=== PATIENT | male | born 1965 | race Caucasian/White ===

== ENCOUNTER 2018-09-12 15:19 | Inpatient (IN) | payer OTHER ==
[~2018-09-12] VITALS: Ht 182.9 cm; Wt 116.6 kg
--- NOTE | 2018-09-12 16:00 | NUR ---
PT CONTINUES TO WANDER THE DEPARTMENT, WILL NOT RETURN TO ROOM WHEN ASKED AND WHEN WE INSIST HE STAYS FOR ONLY 1-2 MINS. PT ASKED AT THIS TIME TO RETURN TO HIS ROOM FOR HIS BLOOD DRAW, HE SPOKE WITH THE INSPECTION SUPERVISOR FOR A MOMENT AND REFUSED HIS BLOOD DRAW.
--- NOTE | 2018-09-12 16:30 | NUR ---
PT CONTINUES TO WANDER THE DEAPRTMENT, HAS REFUSED A SECOND BLODD DRAW, DIRECTED HIM BACK TO HIS ROOM, WILL NOT ENTER THE ROOM, PACING IN THE HALLWAY AT THIS TIME.
--- NOTE | 2018-09-12 17:00 | NUR ---
PT WALKING DOWN THE HALLWAY, SECURITY CALLED TO SIT WITH THE PATIENT DUE TO ELOPEMENT RISK.
[2018-09-12 18:27] LABS: BASOPHILS 0.5 % (0-2); EOSINOPHILS 2.6 % (0-7); HEMATOCRIT 44.7 % (42.0-54.0); HEMOGLOBIN 15.2 g/dL (13.5-17.5); IMMATURE GRANULOCYTES 0.2 % (0-5); LYMPHOCYTES 35.8 % (15-50); MCH 27.9 pg (26.0-34.0); MEAN PLATELET VOLUME 10.5 fL (7.4-10.4); MONOCYTES 8.4 % (2-11); NEUTROPHILS 52.5 % (40-80); PLATELET COUNT 214 10x3/uL (130-400); RBC 5.45 10x6/uL (4.20-6.10); RDW 13.7 % (11.5-14.5); WBC 10.4 10x3/uL (4.8-10.8)
[2018-09-12 18:37] LABS: APPEARANCE CLEAR (CLEAR); COLOR YELLOW (YELLOW); GLUCOSE NEGATIVE (NEGATIVE); KETONE NEGATIVE (NEGATIVE); NITRITE NEGATIVE (NEGATIVE); PROTEIN NEGATIVE (NEGATIVE); SPECIFIC GRAVITY 1.025 (1.005-1.020)
[2018-09-12 18:38] LABS: BILIRUBIN NEGATIVE (NEGATIVE); UROBILINOGEN NORMAL (NORMAL)
[2018-09-12 18:43] LABS: ALBUMIN 3.9 g/dL (3.4-5.0); ALKALINE PHOSPHATASE 139 U/L (46-116); ALT (SGPT) 103 U/L (10-68); BILIRUBIN - TOTAL 0.48 mg/dL (0.2-1.3); CALC OSMOLALITY 282 mosm/kg (275-300); CALCIUM 9.2 mg/dL (8.5-10.1); CHLORIDE - SERUM 105 mmol/L (98-107); CREATININE - SERUM 0.9 mg/dL (0.6-1.3); GLUCOSE 93 mg/dL (74-106); PROTEIN - SERUM 8.1 g/dL (6.4-8.2); SODIUM 142 mmol/L (136-145); UREA NITROGEN 13 mg/dL (7-18); eGFR NON AFRICAN AMERICAN > 90 mL/min (90-120)
[2018-09-12 18:48] LABS: UDS - AMPHET NEGATIVE QUAL (NEGATIVE); UDS - BARB NEGATIVE QUAL (NEGATIVE); UDS - BENZO NEGATIVE QUAL (NEGATIVE); UDS - COCAINE NEGATIVE QUAL (NEGATIVE); UDS - OPIATE NEGATIVE QUAL (NEGATIVE); UDS - PCP NEGATIVE QUAL (NEGATIVE); UDS - THC NEGATIVE QUAL (NEGATIVE)
--- NOTE | 2018-09-12 19:00 | NUR ---
[facility] CALLED AND PSYCH [facility] DENIES PT AT THIS TIME STATES THEY DONT HAVE GERIPSYCH. ARZOLA INFORMED. [facility] STATES THEY WILL HAVE MEDICAL/ER DR TO ADMIT.
[2018-09-12 19:25] VITALS: BP 120/71
--- NOTE | 2018-09-12 19:30 | NUR ---
PT PACING IN ROOM AT THIS TIME. US AT BEDSIDE PT TALKED INTO LYING ON BED AT THIS TIME FOR EXAM. PT CALM AND COOPERATIVE AT THIS TIME.
--- NOTE | 2018-09-12 20:16 | NUR ---
PT SIGNED CONSENT FOR [facility] AT THIS TIME. INFORMED WE ARE WAITING ON [facility] TO CALL [facility] WITH ROOM ASSIGNMENT PT SITTING ON [facility] DENIES FURTHER COMPLAINTS.
--- NOTE | 2018-09-12 20:45 | NUR ---
[facility] CALLED AND SPOKE WITH ER DR. GISELLE PAYNEIES PT AT THIS TIME FOR MEDICAL ISSUES. STATES THEY HAVE NO CAPACITY AT THIS TIME.
--- NOTE | 2018-09-12 21:45 | NUR ---
PT BECOMING ANXIOUS WANTING TO ROAM HALLWAYS TALKING TO PEOPLE. PT INFORMED HE MUST STAY IN HIS ROOM. MD INFORMED SEE EMAR.
--- NOTE | 2018-09-12 22:30 | NUR ---
PT BROUGHT BY STRETCHER TO ROOM 2125 FROM ER. ACCOMPANIED BY SECURITY AND NURSES X 2. SPOKE WITH LECTURER OF PORTUGUESE, GAURAV RICHARDSON, THAT ADMIT ORDERS INCLUDE FOR PT TO HAVE 1:1 SITTER IF NEEDED. POULTRY FARM WORKER STATES FOR PT TO BE MEDICATED WITH ORDRERED GEODON BEFORE SECURITY AND EXTRA STAFF LEAVE FLOOR. PT PLACED IN ROOM THAT CAN BE VIEWED DUE TO POSSIBLE ELOPEMENT RISK. PT POOR HISTORIAN, LIMITED TRANSFER PAPERWORK SENT FROM [facility] WITH PATIENT. ATTEMPTS TO CALL [facility] RESULT IN NO ONE ANSWERING PHONE. WILL ASSESS/ADMIT AND INITIATE PLAN OF CARE.
--- NOTE | 2018-09-12 22:47 | NUR ---
GEODON GIVEN 10MG IM AT THIS TIME
--- NOTE | 2018-09-12 23:30 | NUR ---
ADMITTED FROM ER VIS STRETCHER WITH 2 NURSES AND SECURITY IN ESCORT AND TO BED PT IS EATING A SANDWICH AND IS NOT TALKING OR ANSWERING ANG QUESTIONS ORDERS FOR STEFFANY NOTED AND HS WANTS GIVEN TO KEEP PT CALM BED IS LOW AND LOCKED WITH ALARM TURNED ON SR X3 LCTA AND SKIN WARM AND DRY
--- NOTE | 2018-09-12 23:43 | NUR ---
PT IS RESTING WITH EYES CLOSED AND NO DISTRESS AT THIS TIME
--- NOTE | 2018-09-13 03:03 | NUR ---
ADMISSION ASSESSMENT COMPLETED.
[2018-09-13 03:37] VITALS: BP 122/70; BMI 28.5
[2018-09-13 04:00] VITALS: BP 148/88
[2018-09-13] MEDS ORDERED: KEPPRA500 MG PO (04:34)
[2018-09-13] MEDS ORDERED: CLARITIN 10 MG10 MG PO (04:34)
[2018-09-13] MEDS ORDERED: VITAMIN D2000 UNIT PO (04:35)
[2018-09-13] MEDS ORDERED: PHENERGAN12.5 MG RC (04:36)
--- NOTE | 2018-09-13 07:40 | NUR ---
RECEIVED REPORT. PATIENT IS ALERT AND ORIENTED TO SELF. PATIENT CONTINUES TO GET UP AND WANDER INTO THE [place] WITH NO PARTICULAR DIRECTION. HE DOES NOT SEEM TO REMEMBER WHERE HE IS SUPPOSED TO GO NEXT. HE WILL GO BACK TO HIS ROOM WITH MINIMAL DIRECTION. HE IS STABLE ON HIS FEET, HOWEVER HE DOES HAVE A SHUFFLING GAIT.
[2018-09-13 08:00] LABS: BASOPHILS 0.2 % (0-2); EOSINOPHILS 0.4 % (0-7); HEMATOCRIT 45.8 % (42.0-54.0); HEMOGLOBIN 15.6 g/dL (13.5-17.5); IMMATURE GRANULOCYTES 0.3 % (0-5); LYMPHOCYTES 22.7 % (15-50); MCH 27.8 pg (26.0-34.0); MCHC 34.1 g/dL (31.0-37.0); MCV 81.6 fL (80.0-100.0); MEAN PLATELET VOLUME 11.1 fL (7.4-10.4); MONOCYTES 8.4 % (2-11); PLATELET COUNT 190 10x3/uL (130-400); RBC 5.61 10x6/uL (4.20-6.10); RDW 13.6 % (11.5-14.5); WBC 10.8 10x3/uL (4.8-10.8)
--- NOTE | 2018-09-13 08:06 | NUR ---
PATIENT HAS JUST GONE DOWN TO CT.
[2018-09-13 08:16] LABS: ALBUMIN 3.9 g/dL (3.4-5.0); ALKALINE PHOSPHATASE 119 U/L (46-116); ALT (SGPT) 101 U/L (10-68); AMYLASE - SERUM 82 U/L (25-115); BILIRUBIN - TOTAL 0.43 mg/dL (0.2-1.3); CALC OSMOLALITY 282 mosm/kg (275-300); CALCIUM 9.3 mg/dL (8.5-10.1); CARBON DIOXIDE 23.8 mmol/L (21.0-32.0); CHLORIDE - SERUM 106 mmol/L (98-107); CREATININE - SERUM 0.9 mg/dL (0.6-1.3); GLUCOSE 93 mg/dL (74-106); LIPASE 202 U/L (73-393); POTASSIUM - SERUM 4.3 mmol/L (3.5-5.1); PROTEIN - SERUM 7.8 g/dL (6.4-8.2); SODIUM 142 mmol/L (136-145); UREA NITROGEN 12 mg/dL (7-18); eGFR NON AFRICAN AMERICAN > 90 mL/min (90-120)
--- NOTE | 2018-09-13 12:01 | NUR ---
PATIENT WAS WONDERING OFF THE FLOOR. HE IS COMPLIANT WITH ORDERS. HE HAS BEEN REACHING IN HIS SHORTS AND WIPING WITH HIS HAND. HE DOES NOT SEEM AWARE OF HYGENE. HE CAN SAY YES AND NO, BUT APPEARS TO HAVE A LIMITED VOCABULARY.
--- NOTE | 2018-09-13 14:26 | NUR ---
HOUSE SUPERVISER HAS SENT THE HYDROLOGIST UP HERE TO SIT WITH THE PATIENT AND MAKE SURE THAT HE DOES NOT WANDER AWAY AND GO INTO ANOTHER PATIENTS ROOM OR LEAVE THE HOSPITAL. WHEN THE HYDROLOGIST NEEDS TO ROUND THEN ONE OF US OR ONE OF THE TECHS WILL WATCH HIM. PATIENT DOES TRY TO GRAB AND APPROACH ME AND OTHER HOSPITAL STAFF. HE DOES NOT FORM WORDS, AND HE IS PLAYING IN HIS FECES. HE DOES NOT BACK DOWN WHEN TOLD TO DO SO.
--- NOTE | 2018-09-13 15:05 | NUR ---
PATIENT IS STILL BEING CLOSELY MONITORED BY MYSELF, THE CARGO CHECKER'S AVAILABLE AND ALSO A TOP TILE DECORATOR IS UP HERE NOW TO SIT IN A CHAIR OUTSIDE THE ROOM AND MONITOR THE PATIENT. AT THIS TIME THE PATIENT IS SITTING IN HIS CHAIR WATCHING TV. HE IS CALM AT THIS TIME.
[2018-09-13 15:18] VITALS: BP 139/78
--- NOTE | 2018-09-13 17:52 | NUR ---
SPAR MACHINE OPERATOR HELPER GRETTA RECEIVED ORDER FOR INPATIENT PSYCH CENTER. SHE HAS CALLED THE TRANSFER CENTER AT [phone] AND FAXED ALL THE REQUIRED RECORDS TO THEM. THEY WILL BEGIN TRYING TO GET PATIENT PLACED IN AN INPAITENT FACILITY AND WILL CALL US BACK ONCE ACCEPTANCE HAS BEEN OBTAINED. PRERNA CONLEY RN, [facility] [phone]
--- NOTE | 2018-09-13 18:06 | NUR ---
Patient Name: JAMESON DEE Encounter No: [id number] : 1965 Primary Insurance: [employer] Anticipated DC Date: Planned Disposition: External Planned Provider: :[Ext Provider Name] DCP follow-up note: CM called the transfer center to follow on psych placement efforts and status. Thad with the transfer center stated they have faxed [facility] no return call at this time, [place] full for the evening, [place] no reply at this time, [place] - no return call, [place] no bed tonight, [facility] - no bed for tonight, [facility], [facility] no return call, [facility] no return call, [facility] no return call, [facility] no no return call, [facility] no return call. Thad stated as soon as they have a moment they will call back to the facilities that have not called her back. She stated she is currently working on a head bleed and once she completes that she will begin calling the other facilities back. Gisela Zayas RN, CCM
[2018-09-13 18:48] VITALS: BP 144/86
--- NOTE | 2018-09-13 19:15 | NUR ---
RECEIVED REPORT, WILL ASSUME CARE OF PT, PT KEEPS TRYING TO LEAVE ROOM, PLACED BACK IN ROOM, WILL GIVE PRN MEDS, CALL LIGHT IN REACH, WILL CONTINUE PLAN OF CARE
[2018-09-13 20:00] VITALS: BP 126/72
--- NOTE | 2018-09-14 03:14 | NUR ---
I have reviewed this patient and I concur with the Shift Assessment completed by the Licensed Practical Nurse today this shift.
[2018-09-14 04:00] VITALS: BP 123/76
--- NOTE | 2018-09-14 07:20 | NUR ---
ALERT. NONVERBAL RESPONSE WHEN ASKED QUESTIONS. SITTING IN BED. SECURITY AT BEDSIDE. CONTINUE PLAN OF CARE AND SAFETY PRECAUTIONS.
[2018-09-14 07:53] LABS: BASOPHILS 0.3 % (0-2); EOSINOPHILS 1.6 % (0-7); HEMATOCRIT 45.4 % (42.0-54.0); HEMOGLOBIN 15.4 g/dL (13.5-17.5); IMMATURE GRANULOCYTES 0.3 % (0-5); MCH 27.8 pg (26.0-34.0); MCHC 33.9 g/dL (31.0-37.0); MCV 82.1 fL (80.0-100.0); MEAN PLATELET VOLUME 10.8 fL (7.4-10.4); MONOCYTES 7.2 % (2-11); NEUTROPHILS 61.6 % (40-80); RBC 5.53 10x6/uL (4.20-6.10)
[2018-09-14 07:54] LABS: PLATELET COUNT 243 10x3/uL (130-400)
[2018-09-14 08:14] LABS: ALBUMIN 3.9 g/dL (3.4-5.0); ALKALINE PHOSPHATASE 122 U/L (46-116); ALT (SGPT) 93 U/L (10-68); CALC OSMOLALITY 282 mosm/kg (275-300); CALCIUM 9.2 mg/dL (8.5-10.1); CHLORIDE - SERUM 108 mmol/L (98-107); CREATININE - SERUM 0.9 mg/dL (0.6-1.3); GLUCOSE 106 mg/dL (74-106); POTASSIUM - SERUM 3.9 mmol/L (3.5-5.1); SODIUM 142 mmol/L (136-145); UREA NITROGEN 13 mg/dL (7-18); eGFR NON AFRICAN AMERICAN > 90 mL/min (90-120)
[2018-09-14 08:36] VITALS: BP 117/82
--- NOTE | 2018-09-14 09:40 | CN ---
PATIENT NAME:JAMESON DEE MEDICAL RECORD: [id number] : 61 LOCATION:D. D.2125 ADMIT DATE: 09/12/18 ACCOUNT: [id number] CONSULTING PHYSICIAN: POLI CORTEZ MD REFERRING PHYSICIAN: EDMUND SARAVIA MD DATE OF CONSULTATION: 09/13/2018 PSYCHIATRIC CONSULTATION IDENTIFYING DATA: The patient is 52 years old and he is admitted to the hospital on a voluntary basis. CHIEF COMPLAINT: Psychotic behavior. HISTORY OF PRESENT ILLNESS: The patient lives in the [facility]. Apparently, he was smearing the [place] with excrement. He was brought to the Emergency Room for evaluation. There are no other sources of information, no collateral sources are available and no old records here. By inference since he lives in the [facility], he is obviously low income and I presume disabled. He is not able to give anything in the way of useful information. He is not oriented. He is not making sense in answering questions. In fact, his answers to questions are completely unrelated to the question being asked. He is calm and cooperative, but he clearly is severely impaired for reasons that are uncertain. He admits to having a previous psychiatric history, but cannot tell me anything about it. He denies any recent drug use and indeed his urine drug screen is negative. When trying to ask about a history of drug use, he becomes so disorganized, I cannot follow the information that he is giving me. I cannot follow it because it does not make sense. MENTAL STATUS EXAMINATION: The patient is awake, alert and oriented to person only. His mood is flat. His affect is constricted. Thought processes are grossly disorganized with severe impairment of his memory, concentration, and abstraction abilities. He denies that he wants to hurt himself or others. He is clearly experiencing psychotic symptoms even though when asked about them specifically he gave an answer that did not make any sense. ASSESSMENT: 1. 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 2. Rule out substance abuse. PLAN: At this time, the patient is grossly disorganized and behaving in a very bizarre manner. He is in need of acute inpatient psychiatric care as soon as it is reasonably practical to transfer him there. I am going to start him on antipsychotic medication. He is not suicidal, but he probably should be 1:1 with staff to prevent him from wandering away and getting injured. He certainly needs to be on a secure door-locked unit. Additional information is needed. I am strongly suspecting a history of substance abuse based on the hepatitis C finding. In addition to this, I have no knowledge about his previous mental health treatment, but we will treat him for the acute psychotic symptoms that he is experiencing. An EEG may be helpful, but I do not think that it is going to be a diagnostic. He probably has some general disorganization and I do not think that what we are currently observing his confusion is associated with a postictal or interictal syndrome. TRANSINT:[id number] Voice Confirmation ID: [id number] DOCUMENT ID: [id number] CONSULT REPORT [id number] JAMESON DEE, POLI ARZOLA at 0940 CC: [id number] DICTATION DATE: 09/13/18 1159 STUD MASTER/MISTRESS: 09/13/18 1614 ADM IN [place] [id number] [place] [address]
--- NOTE | 2018-09-14 17:24 | NUR ---
RESTING QUIETLY IN BED WITH EYES CLOSED. RESPIRATIONS EVEN AND REGULAR. NO SIGNS OF DISTRESS. CONTINUE PLAN OF CARE AND SAFETY PRECAUTIONS.
--- NOTE | 2018-09-14 20:06 | NUR ---
INITIAL ROUNDS COMPLETED AT 191 HRS. PT RESTING WITH EYES CLOSED. RESP EVEN AND REGULAR. ASSESSMENT COMPLETED AT 1920 HRS. PT CONFUSED; ORIENTED TO PERSON ONLY. UNSTEADY ON FEET. IV TO RAC SL. LUNGS CTA. ABD SOFT WITH ACTIVE BS NOTED. PT INCONTINENT OF URINE AND STOOL. BED LINENS WET. INCONTINENT CARE DONE. BED LINENS CHANGED. PT CURRENTLY WATCHING TV. SR UP X3, CALL LIGHT WITHIN REACH AND BED ALARM ON.
[2018-09-14 20:36] VITALS: BP 133/79
--- NOTE | 2018-09-14 22:59 | NUR ---
PT RESTING WITH EYES CLOSED. RESP EVEN AND REGULAR. SR UP X2, CALL LIGHT WITHIN REACH.
[2018-09-15] VITALS: BP 109/70
--- NOTE | 2018-09-15 00:42 | NUR ---
PT AWAKE AND SITTING ON SIDE OF BED. NO DISTRESS NOTED. SR UP X2, CALL LIGHT WITHIN REACH AND DOOR OPEN.
--- NOTE | 2018-09-15 01:32 | NUR ---
PT INCONTINENT OF URINE. BEDBATH DONE, BED LINENS CHANGED. PT TOLERATED ACTIVITY WELL. SR UP X2, CALL LIGHT WITHIN REACH AND DOOR OPEN.
[2018-09-15 04:00] VITALS: BP 112/68
--- NOTE | 2018-09-15 04:58 | NUR ---
PT RESTING WITH EYES CLOSED. RESP EVEN AND REGULAR. SR UP X2,CALL LIGHT WITHIN REACH, BED ALARM ON AND DOOR OPEN.
[2018-09-15 05:34] LABS: BASOPHILS 0.4 % (0-2); EOSINOPHILS 1.7 % (0-7); HEMATOCRIT 44.7 % (42.0-54.0); HEMOGLOBIN 14.9 g/dL (13.5-17.5); IMMATURE GRANULOCYTES 0.2 % (0-5); LYMPHOCYTES 33.4 % (15-50); MCH 27.7 pg (26.0-34.0); MCHC 33.3 g/dL (31.0-37.0); MCV 83.2 fL (80.0-100.0); MEAN PLATELET VOLUME 11.3 fL (7.4-10.4); MONOCYTES 8.8 % (2-11); NEUTROPHILS 55.5 % (40-80); PLATELET COUNT 238 10x3/uL (130-400); RBC 5.37 10x6/uL (4.20-6.10); RDW 14.1 % (11.5-14.5); WBC 10.3 10x3/uL (4.8-10.8)
[2018-09-15 05:52] LABS: ALBUMIN 3.5 g/dL (3.4-5.0); ALKALINE PHOSPHATASE 103 U/L (46-116); ALT (SGPT) 88 U/L (10-68); BILIRUBIN - TOTAL 0.51 mg/dL (0.2-1.3); CALC OSMOLALITY 286 mosm/kg (275-300); CARBON DIOXIDE 23.2 mmol/L (21.0-32.0); CHLORIDE - SERUM 109 mmol/L (98-107); CREATININE - SERUM 0.8 mg/dL (0.6-1.3); GLUCOSE 91 mg/dL (74-106); PROTEIN - SERUM 7.5 g/dL (6.4-8.2); SODIUM 144 mmol/L (136-145); UREA NITROGEN 12 mg/dL (7-18); eGFR NON AFRICAN AMERICAN > 90 mL/min (90-120)
--- NOTE | 2018-09-15 06:20 | NUR ---
PT RESTED WELL DURING SHIFT. INCONTINENT X3. NEEDS MET; WILL CONTINUE TO MONITOR.
[2018-09-15 08:25] VITALS: BP 113/69
--- NOTE | 2018-09-15 09:05 | MORECARE ---
CASE MANAGEMENT DISCHARGE SUMMARY PATIENT: JAMESON DEE UNIT: [id number] ADM DATE: 09/12/18 AGE: 52 : [birth year] SEX: M ROOM/BED: D.2615 AUTHOR: LATOSHA BHAKTA PHYSICIAN: REFERRING PHYSICIAN: EDMUND SARAVIA MD DATE OF SERVICE: 09/15/18 Discharge Plan Patient Name: JAMESON DEE Facility: [facility]:[place] : 1965 Planned Disposition: Psych facility Anticipated Discharge Date: 09/15/18 Discharge Date: Expected LOS: 3 Initial Reviewer: [id number] Initial Review Date: 09/12/2018 Generated: 09/15/18 10:05 am Comments DCP- Discharge Planning Updated by [id number]: Gisela Zayas on 09/13/18 5:[address] Patient Name: JAMESON DEE Encounter No: [id number] : 1965 Primary Insurance: [employer] [facility] Anticipated DC Date: Planned Disposition: External Planned Provider: :[Ext Provider Name] DCP follow-up note: CM called the transfer center to follow on psych placement efforts and status. Thad with the transfer center stated they have faxed [facility] no return call at this time, [place] full for the evening, [place] no reply at this time, [place] - no return call, [place] no bed tonight, [facility] - no bed for tonight, [facility], [facility] no return call, [facility] no return call, [facility] no return call, [facility] no no return call, [facility] no return call. Thad stated as soon as they have a moment they will call back to the facilities that have not called her back. She stated she is currently working on a head bleed and once she completes that she will begin calling the other facilities back. Gisela Zayas RN, [facility] DCP- Discharge Planning Updated by [id number]: Gisela Zayas on 09/13/18 4:[address] Patient Name: JAMESON DEE Encounter No: [id number] : 1965 Primary Insurance: [employer] Anticipated DC Date: Planned Disposition: External Planned Provider: : DCP follow-up note: [facility] and [facility] told them to admit the patient here as they did not have geripsych. Gisela Zayas DCP- Discharge Planning Updated by [id number]: Gisela Marquez on 09/13/18 4:[address] Patient Name: JAMESON DEE Admission Status: ER Accout number: [id number] Admission Date: 09-12-2018 : 1965 Admission Diagnosis: Attending: EDMUND SARAVIA Current LOS: 1 Anticipated DC Date: Planned Disposition: Primary Insurance: [facility] Discharge Planning Comments: CM CONSULT FOR [facility] NOTIFIED AND PACKET SENT. Reel Winder: Berna Baptiste Patient Name: JAMESON DEE Page [id number] at 0905 All edits/amendments must be made on the electronic document DICTATION DATE: 09/15/18903 MATERIAL ENGINEER: ANA MARIA 09/15/18903 RPT#: [id number] DC DATE: STATUS: ADM IN [place] [address] [place] [address] END OF REPORT
[2018-09-15 11:28] VITALS: BP 99/60
--- NOTE | 2018-09-15 12:43 | MORECARE ---
CASE MANAGEMENT DISCHARGE SUMMARY PATIENT: JAMESON DEE UNIT: [id number] ADM DATE: 09/12/18 AGE: 52 : [birth year] SEX: M ROOM/BED: D.2125 AUTHOR: YONY,DOC PHYSICIAN: REFERRING PHYSICIAN: EDMUND SARAVIA MD DATE OF SERVICE: 09/15/18 Discharge Plan Patient Name: JAMESON DEE Facility: [facility]:[place] : 1965 Planned Disposition: Psych facility Anticipated Discharge Date: 09/15/18 Discharge Date: Expected LOS: 3 Initial Reviewer: [email or web address] Initial Review Date: 09/12/2018 Generated: 09/15/18 1:42 pm Comments DCP- Discharge Planning Updated by [email or web address]: Nathan Boswell on 09/15/18 11:[address] Patient Name: JAMESON DEE Encounter No: [id number] : 1965 Primary Insurance: [employer] [facility] Anticipated DC Date: 09-15-2018 Planned Disposition: Psych facility External Planned Provider: [facility] DCP follow-up note: CM CALLED [place] EXPEDITOR, , SPOKE TO DAVID; INFORMED EXPEDITOR THAT PT IS MEDICALLY STABLE AND IN NEED OF INPATIENT PSYCHIATRIC PLACEMENT. DAVID REVIEWED RECORD AND OBSERVED THAT PT WAS ORIGINALLY REQUESTED FOR PSYCHIATRIC TRANSFER DUR TO [facility]. CM INFORMED EXPEDITOR THAT PT HAS BEEN DIAGNOSED WITH PSYCHOSIS. CM PROVIDED [facility] 2 CONTACT INFORMATION WELL CM CONTACT INFORMATION AND CONTACT PHONE NUER FOR DR. SEYMOUR. CM WAITING [facility] TO CONTACT DOCTOR OR CM TO CONTINUE TRANSFER PROCESS. Nathan Boswell, CASE MANAGEMENT DCP- Discharge Planning Updated by [id number]: Gisela Zayas on 09/13/18 5:[address] Patient Name: JAMESON DEE Encounter No: [id number] : 1965 Primary Insurance: [employer] Anticipated DC Date: Planned Disposition: External Planned Provider: :[Ext Provider Name] DCP follow-up note: CM called the transfer center to follow on psych placement efforts and status. Thad with the transfer center stated they have faxed [facility] no return call at this time, [place] full for the evening, [place] no reply at this time, [place] - no return call, [place] no bed tonight, Episcopalian - no bed for tonight, [facility] no return call, [facility] no return call, [facility] no return call, [facility] no return call, [facility] no no return call, [facility] no return call. Thad stated as soon as they have a moment they will call back to the facilities that have not called her back. She stated she is currently working on a head bleed and once she completes that she will begin calling the other facilities back. Gisela Zayas RN, [facility] DCP- Discharge Planning Updated by [id number]: Gisela Zayas on 09/13/18 4:[address] Patient Name: JAMESON DEE Encounter No: [id number] : 1965 Primary Insurance: [employer] Anticipated DC Date: Planned Disposition: External Planned Provider: : DCP follow-up note: [facility] and they told them to admit the patient here as they did not have geripsych. Gisela Zayas DCP- Discharge Planning Updated by [id number]: Gisela Zayas on 09/13/18 4:[address] Patient Name: JAMESON DEE Admission Status: ER Accout number: [id number] Admission Date: 09-12-2018 : 1965 Admission Diagnosis: Attending: EDMUND SARAVIA Current LOS: 1 Anticipated DC Date: Planned Disposition: Primary Insurance: [employer] Discharge Planning Comments: CM CONSULT FOR [facility] TRANSF[facility] CENTER NOTIFIED AND PACKET SENT. Barrel Plater: Berna John DP export: 09/15/18 8:05 a Patient Name: JAMESON DEE Page [id number] at 1243 All edits/amendments must be made on the electronic document DICTATION DATE: 09/15/18 1242 AUDITOR/QUALITY: ANA MARIA 09/15/18 124 RPT#: [id number] DC DATE: STATUS: ADM IN [facility] [address] [place] [address] END OF REPORT
[2018-09-15 14:01] VITALS: Ht 182.9 cm; Wt 116.6 kg
[2018-09-15 15:27] VITALS: BP 124/77
--- NOTE | 2018-09-15 16:00 | NUR ---
RESTING IN BED WITH EYES CLOSED. RESPIRATIONS EVEN AND REGULAR. NO SIGNS OF DISTRESS. THREE SIDERAILS UP. BED ALARM ON. CONTINUE PLAN OF CARE AND SAFETY PRECAUTIONS.
--- NOTE | 2018-09-15 16:47 | MORECARE ---
CASE MANAGEMENT DISCHARGE SUMMARY PATIENT: JAMESON DEE UNIT: [id number] ADM DATE: 09/12/18 AGE: 52 : [birth year] SEX: M ROOM/BED: D.2125 AUTHOR: YONY,DOC PHYSICIAN: REFERRING PHYSICIAN: EDMUND SARAVIA MD DATE OF SERVICE: 09/15/18 Discharge Plan Patient Name: JAMESON DEE Facility: [facility]:[place] : 1965 Planned Disposition: Psych facility Anticipated Discharge Date: 09/16/18 Discharge Date: Expected LOS: 4 Initial Reviewer: [id number] Initial Review Date: 09/12/2018 Generated: 09/15/18 5:47 pm Comments DCP- Discharge Planning Updated by [id number]: Nathan Helms on 09/15/18 3:[address] Patient Name: JAMESON DEE Encounter No: [id number] : 1965 Primary Insurance: [employer] Anticipated DC Date: 09-15-2018 Planned Disposition: Psych facility External Planned Provider: [facility] IN[facility] DCP follow-up note: CM CALLED IN EXPEDITOR, , SPOKE TO DAVID; INFORMED EXPEDITOR THAT PT IS MEDICALLY STABLE AND IN NEED OF INPATIENT PSYCHIATRIC PLACEMENT. DAVID REVIEWED RECORD AND OBSERVED THAT PT WAS ORIGINALLY REQUESTED FOR PSYCHIATRIC TRANSFER DUR TO [facility]. CM INFORMED EXPEDITOR THAT PT HAS BEEN DIAGNOSED WITH PSYCHOSIS. CM PROVIDED [facility] 2 CONTACT INFORMATION WELL CM CONTACT INFORMATION AND CONTACT PHONE [facility] FOR DR. SEYMOUR. CM WAITING [facility] TO CONTACT DOCTOR OR CM TO CONTINUE TRANSFER PROCESS. Nathan Helms, CASE MANAGEMENT Appended by Nathan Helms on 09/15/2018 16:41 CDT: CM CALLED IN EXPEDITOR, , SPOKE TO DAVID AT 1515 HOURS, REQUESTED UPDATE ON PLACEMENT REQUEST FOR INPATIENT PHYCHIATRIC CARE. PATIENT EXPEDITOR DAVID INFORMED CM THAT SCREENING NURSE, AVANI SHRESTHA, HAD GONE HOME FOR THE DAY AND SHOULD CONTACT CM IN THE MORNING. CM NOTIFIED CARRIE SNIDER. CM WAITING ON SCREENING AND ADMISSION DETERMINATION FROM IN [facility] [place]. NATHAN HELMS, CASE MANAGEMENT DCP- Discharge Planning Updated by [id number]: Gisela Zayas on 09/13/18 5:[address] Patient Name: JAMESON DEE Encounter No: [id number] : 1965 Primary Insurance: [employer] Anticipated DC Date: Planned Disposition: External Planned Provider: :[Ext Provider Name] DCP follow-up note: CM called the transfer center to follow on psych placement efforts and status. Thad with the transfer center stated they have faxed [facility] no return call at this time, [place] full for the evening, [place] no reply at this time, [place] - no return call, [place] no bed tonight, [facility] - no bed for tonight, [facility] no [facility], [facility] no return call, [facility] no return call, [facility] no return call, [facility] no no return call, [facility] no return call. Thad stated as soon as they have a moment they will call back to the facilities that have not called her back. She stated she is currently working on a head bleed and once she completes that she will begin calling the other facilities back. Gisela Zayas RN, [facility] DCP- Discharge Planning Updated by [id number]: Gisela Zayas on 09/13/18 4:[address] Patient Name: JAMESON DEE Encounter No: [id number] : 1965 Primary Insurance: [employer] Anticipated DC Date: Planned Disposition: External Planned Provider: : DCP follow-up note: [facility] Nurse and they told them to admit the patient here as they did not have geripsych. Gisela Zayas DCP- Discharge Planning Updated by [id number]: Gisela Zayas on 09/13/18 4:[address] Patient Name: JAMESON DEE Admission Status: ER Accout number: [id number] Admission Date: 09-12-2018 : 1965 Admission Diagnosis: Attending: EDMUND SARAVIA Current LOS: 1 Anticipated DC Date: Planned Disposition: Primary Insurance: [employer] Discharge Planning Comments: CM CONSULT FOR PSYCH PLACEMENT TRANSFER CENTER NOTIFIED AND PACKET SENT. Oil Well Pumper: Berna Baptiste Last DP export: 09/15/18 11:42 a Patient Name: JAMESON DEE Page [id number] at 1647 All edits/amendments must be made on the electronic document DICTATION DATE: 09/15/181646 FIELD INVESTIGATOR: ANA MARIA 09/15/181646 RPT#: [id number] DC DATE: STATUS: ADM IN [facility] [address] [place] [address] END OF REPORT
--- NOTE | 2018-09-15 18:31 | NUR ---
FLITCH HANGER ASSIST TO SHOWER. SHOWER AND LINEN CHANGE COMPLETE. STANDING AT SINK BRUSHING HAIR. FLITCH HANGER AT BEDSIDE TO ASSIST TO CHAIR FOR DINNER. DENIES ANY NEEDS. CONTINUE PLAN OF CARE AND SAFETY PRECAUTIONS.
--- NOTE | 2018-09-15 19:30 | NUR ---
RESUMING PATIENT CARE. PATIENT ALERT AND ORIENTED X 1. RESPIRATIONS ARE EVEN AND UNLABORED. NO S/S OF DISTRESS. NO C/O PAIN. DENIES NEEDS. CALL LIGHT WITHIN REACH. WILL CPOC.
[2018-09-15 20:00] VITALS: BP 113/73
--- NOTE | 2018-09-16 01:13 | NUR ---
PATIENT RESTING IN BED. RESPIRATIONS ARE EVEN AND UNLABORED. NO S/S OF DISTRESS. NO C/O PAIN. CALL LIGHT WITHIN REACH. WILL CPOC.
[2018-09-16 08:22] LABS: BASOPHILS 0.3 % (0-2); EOSINOPHILS 1.9 % (0-7); HEMOGLOBIN 15.4 g/dL (13.5-17.5); IMMATURE GRANULOCYTES 0.1 % (0-5); LYMPHOCYTES 33.9 % (15-50); MCH 27.9 pg (26.0-34.0); MCHC 33.5 g/dL (31.0-37.0); MCV 83.3 fL (80.0-100.0); MEAN PLATELET VOLUME 10.9 fL (7.4-10.4); MONOCYTES 9.6 % (2-11); NEUTROPHILS 54.2 % (40-80); PLATELET COUNT 262 10x3/uL (130-400); RBC 5.52 10x6/uL (4.20-6.10); RDW 14.2 % (11.5-14.5); WBC 8.9 10x3/uL (4.8-10.8)
[2018-09-16 08:41] LABS: ALBUMIN 3.6 g/dL (3.4-5.0); BILIRUBIN - TOTAL 0.53 mg/dL (0.2-1.3); CALCIUM 9.2 mg/dL (8.5-10.1); CARBON DIOXIDE 28.5 mmol/L (21.0-32.0); POTASSIUM - SERUM 3.5 mmol/L (3.5-5.1)
[2018-09-16 08:42] LABS: CREATININE - SERUM 1.1 mg/dL (0.6-1.3)
[2018-09-16 09:56] VITALS: BP 126/67
--- NOTE | 2018-09-16 10:06 | MORECARE ---
CASE MANAGEMENT DISCHARGE SUMMARY PATIENT: JAMESON DEE UNIT: [id number] ADM DATE: 09/12/18 AGE: 52 : 61 SEX: M ROOM/BED: D.2125 AUTHOR: YONY,DOC PHYSICIAN: REFERRING PHYSICIAN: EDMUND SARAVIA MD DATE OF SERVICE: 09/16/18 Discharge Plan Patient Name: JAMESON DEE Facility: [facility]:[place] : 1965 Planned Disposition: Psych facility Anticipated Discharge Date: 09/16/18 Discharge Date: Expected LOS: 4 Initial Reviewer: [id number] Initial Review Date: 09/12/2018 Generated: 09/16/18 11:06 am Comments DCP- Discharge Planning Updated by [email or web address]: Nathan Helms on 09/15/18 3:[address] Patient Name: JAMESON DEE Encounter No: [id number] : 1965 Primary Insurance: [employer] ADMINISTRATION Anticipated DC Date: 09-15-2018 Planned Disposition: Psych facility External Planned Provider: [facility]AC[facility] DCP follow-up note: CM CALLED [place] EXPEDITOR, , SPOKE TO DAVID; INFORMED EXPEDITOR THAT PT IS MEDICALLY STABLE AND IN NEED OF INPATIENT PSYCHIATRIC PLACEMENT. DAVID REVIEWED RECORD AND OBSERVED THAT PT WAS ORIGINALLY REQUESTED FOR PSYCHIATRIC TRANSFER DUR TO [facility]. CM INFORMED EXPEDITOR THAT PT HAS BEEN DIAGNOSED WITH PSYCHOSIS. CM PROVIDED [facility] 2 CONTACT INFORMATION WELL CM CONTACT INFORMATION AND CONTACT PHONE [facility] FOR DR. SEYMOUR. CM WAITING [facility] PSY[facility]RIC UNIT TO CONTACT DOCTOR OR CM TO CONTINUE TRANSFER PROCESS. Nathan Helms, CASE MANAGEMENT Appended by Nathan Helms on 09/15/2018 16:41 CDT: CM CALLED [place] EX[facility], , SPOKE TO DAVID AT 1515 HOURS, REQUESTED UPDATE ON PLACEMENT REQUEST FOR INPATIENT PHYCHIATRIC CARE. PATIENT EXPEDITOR DAVID INFORMED CM THAT SCREENING NURSE, AVANI SHRESTHA, HAD GONE HOME FOR THE DAY AND SHOULD CONTACT CM IN THE MORNING. CM NOTIFIED CARRIE SNIDER. CM WAITING ON SCREENING AND ADMISSION DETERMINATION FROM [facility] IN [place]. NATHAN HELMS, CASE MANAGEMENT DCP- Discharge Planning Updated by [id number]: Gisela Zayas on 09/13/18 5:[address] Patient Name: JAMESON DEE Encounter No: [id number] : 1965 Primary Insurance: [employer] Anticipated DC Date: Planned Disposition: External Planned Provider: :[Ext Provider Name] DCP follow-up note: CM called the transfer center to follow on psych placement efforts and status. Thad with the transfer center stated they have faxed [facility] no return call at this time, [place] full for the evening, [place] no reply at this time, [place] - no return call, [place] no bed tonight, [facility] - no bed for tonight, [facility], [facility] no return call, [place] no return call, [facility] no return call, [facility] no no return call, [facility] no return call. Thad stated as soon as they have a moment they will call back to the facilities that have not called her back. She stated she is currently working on a head bleed and once she completes that she will begin calling the other facilities back. Gisela Zayas RN, [facility] DCP- Discharge Planning Updated by [id number]: Gisela Zayas on 09/13/18 4:[address] Patient Name: JAMESON DEE Encounter No: [id number] : 1965 Primary Insurance: [employer] Anticipated DC Date: Planned Disposition: External Planned Provider: : DCP follow-up note: [facility] told [facility] to admit the patient here as they did not have geripsych. Gisela Zayas DCP- Discharge Planning Updated by [id number]: Gisela Zayas on 09/13/18 4:[address] Patient Name: JAMESON DEE Admission Status: ER Accout number: [id number] Admission Date: 09-12-2018 : 1965 Admission Diagnosis: Attending: EDMUND SARAVIA Current LOS: 1 Anticipated DC Date: Planned Disposition: Primary Insurance: [employer] Discharge Planning Comments: CM CONSULT FOR PSYCH PLACEMENT TRANSFER CENTER NOTIFIED AND PACKET SENT. Mortgage Processing Manager: Berna Baptiste External Providers External Provider: OTHER-OTHER Next Contact Date: 09/16/2018 Service Request Date: Service Type: Resolution: Reviewer: Comments: Last DP export: 09/15/18 3:47 p Patient Name: JAMESON DEE Page 94142 at 1006 All edits/amendments must be made on the electronic document DICTATION DATE: 09/16/181005 CONTROLLER MECHANIC: ANA MARIA 09/16/181005 RPT#: [id number] DC DATE: STATUS: ADM IN [facility] [address] [place] [address] END OF REPORT
--- NOTE | 2018-09-16 11:22 | MORECARE ---
CASE MANAGEMENT DISCHARGE SUMMARY PATIENT: JAMESON DEE UNIT: [id number] ADM DATE: 09/12/18 AGE: 52 : 61 SEX: M ROOM/BED: D.9435 AUTHOR: YONY,DOC PHYSICIAN: REFERRING PHYSICIAN: EDMUND SARAVIA MD DATE OF SERVICE: 09/16/18 Discharge Plan Patient Name: JAMESON DEE Facility: [facility]:[place] : 1965 Planned Disposition: Assisted Living Anticipated Discharge Date: 09/16/18 Discharge Date: Expected LOS: 4 Initial Reviewer: [id number] Initial Review Date: 09/12/2018 Generated: 09/16/18 12:21 pm Comments DCP- Discharge Planning Updated by [id number]: Nathan Helms on 09/15/18 3:[address] Patient Name: JAMESON DEE Encounter No: [id number] : 1965 Primary Insurance: [employer] ADMINISTRATION Anticipated DC Date: 09-15-2018 Planned Disposition: Psych facility External Planned Provider: [facility]IC FAC[facility] DCP follow-up note: CM CALLED [place] EXPEDITOR, , SPOKE TO DAVID; INFORMED EXPEDITOR THAT PT IS MEDICALLY STABLE AND IN NEED OF INPATIENT PSYCHIATRIC PLACEMENT. DAVID REVIEWED RECORD AND OBSERVED THAT PT WAS ORIGINALLY REQUESTED FOR PSYCHIATRIC TRANSFER DUR TO [facility]. CM INFORMED EXPEDITOR THAT PT HAS BEEN DIAGNOSED WITH PSYCHOSIS. CM PROVIDED [facility] 2 CONTACT INFORMATION WELL CM CONTACT INFORMATION AND CONTACT PHONE [facility] FOR DR. SEYMOUR. CM WAITING [facility] PSYCHIATRIC UNIT TO CONTACT DOCTOR OR CM TO CONTINUE TRANSFER PROCESS. Nathan Helms, CASE MANAGEMENT Appended by Nathan Helms on 09/15/2018 16:41 CDT: CM CALLED [place] EXPEDITOR, , SPOKE TO DAVID AT 1515 HOURS, REQUESTED UPDATE ON PLACEMENT REQUEST FOR INPATIENT PHYCHIATRIC CARE. PATIENT EXPEDITOR DAVID INFORMED CM THAT SCREENING NURSE, AVANI SHRESTHA, HAD GONE HOME FOR THE DAY AND SHOULD CONTACT CM IN THE MORNING. CM NOTIFIED CARRIE SNIDER. CM WAITING ON SCREENING AND ADMISSION DETERMINATION FROM [facility] IN [place]. NATHAN HELMS, CASE MANAGEMENT DCP- Discharge Planning Updated by [id number]: Gisela Zayas on 09/13/18 5:[address] Patient Name: JAMESON DEE Encounter No: [id number] : 1965 Primary Insurance: [employer] Anticipated DC Date: Planned Disposition: External Planned Provider: :[Ext Provider Name] DCP follow-up note: CM called the transfer center to follow on psych placement efforts and status. Thad with the transfer center stated they have faxed [facility] no return call at this time, [place] full for the evening, [place] no reply at this time, [place] - no return call, [place] no bed tonight, Yazidism - no bed for tonight, [facility], [facility] no return call, [facility] no return call, [facility] no return call, [facility] no no return call, [facility] no return call. Thad stated as soon as they have a moment they will call back to the facilities that have not called her back. She stated she is currently working on a head bleed and once she completes that she will begin calling the other facilities back. Gisela Zayas RN, [facility] DCP- Discharge Planning Updated by [id number]: Gisela Zayas on 09/13/18 4:[address] Patient Name: JAMESON DEE Encounter No: [id number] : 1965 Primary Insurance: [employer] Anticipated DC Date: Planned Disposition: External Planned Provider: : DCP follow-up note: [facility] and [facility] told them to admit the patient here as they did not have geripsych. Gisela Zayas DCP- Discharge Planning Updated by [id number]: Gisela Zayas on 09/13/18 4:[address] Patient Name: JAMESON DEE Admission Status: ER Accout number: [id number] Admission Date: 09-12-2018 : 1965 Admission Diagnosis: Attending: EDMUND SARAVIA Current LOS: 1 Anticipated DC Date: Planned Disposition: Primary Insurance: [employer] Discharge Planning Comments: CM CONSULT FOR PSYCH PLACEMENT TRANSFER CENTER NOTIFIED AND PACKET SENT. Dietetics Teacher: Berna Baptiste Last DP export: 09/16/18 9:06 a Patient Name: JAMESON DEE Page 57568 at 1122 All edits/amendments must be made on the electronic document DICTATION DATE: 09/16/18 112 PRIVATE CHEF: ANA MARIA 09/16/18 112 RPT#: [id number] DC DATE: STATUS: ADM IN [facility] [address] [place] [address] END OF REPORT
--- NOTE | 2018-09-16 11:31 | MORECARE ---
CASE MANAGEMENT DISCHARGE SUMMARY PATIENT: JAMESON DEE UNIT: [id number] ADM DATE: 09/12/18 AGE: 52 : 61 SEX: M ROOM/BED: D.1105 AUTHOR: YONY,DOC PHYSICIAN: REFERRING PHYSICIAN: EDMUND SARAVIA MD DATE OF SERVICE: 09/16/18 Discharge Plan Patient Name: JAMESON DEE Facility: [facility]:[place] : 1965 Planned Disposition: Assisted Living Anticipated Discharge Date: 09/16/18 Discharge Date: Expected LOS: 4 Initial Reviewer: [id number] Initial Review Date: 09/12/2018 Generated: 09/16/18 12:31 pm Comments DCP- Discharge Planning Updated by [id number]: Nathan Helms on 09/16/18 10:[address] Patient Name: JAMESON DEE Encounter No: [id number] : 1965 Primary Insurance: [employer] Anticipated DC Date: 09-16-2018 Planned Disposition: Assisted Living External Planned Provider: [facility] DCP follow-up note: CM RECEIVED CALL FROM AVANI SHRESTHA OF [facility] WHO INFORMED CM THAT PT IS NOT IN NEED OF ACUTE PSYCHIATRIC TREATMENT HIS PRIMARY DIAGNOSIS IS DEMENTIA. AVANI INFORMED CM THAT PT NEEDS HALFWAY FACILITY CARE THAT CAN DEAL WITH PT'S BEHAVIORS. ENRIQUE INFORMED CM THAT PT LIVES AT THE [facility] AND SHE BELIEVES HE IS IN MEMORY CARE UNIT. CM CALLED THE [facility], [phone], SPOKE TO LIONEL WHO INFORMED CM THAT SHE CALLED THE [facility] ON SATURDAY AND THEY SAID THEY WERE GOING TO TAKE PT INTO THE PSYCHIATRIC UNIT AND TO SEND PT TO THE EMERGENCY ROOM FOR TRANSFER. CM EXPLAINED WHAT AVANI SHRESTHA HAD INDICATED FROM [facility]. CM ASKED IF THE [facility] WILL SEND SOMEONE TO EVALUATE FOR RETURN. LIONEL WILL SPEAK TO [facility] AND IF PT DOES NOT TRANSFER, THEY WILL PROBABLY TAKE PT BACK INTO MEMORY CARE AT [facility]. CM WAITING DETERMINATION FOR READMIT TO THE [facility]ARE UNIT. Nathan Helms CASE MANAGEMENT DCP- Discharge Planning Updated by [id number]: Nathan Helms on 09/15/18 3:[address] Patient Name: JAMESON DEE Encounter No: [id number] : 1965 Primary Insurance: [employer]MINISTRATION Anticipated DC Date: 09-15-2018 Planned Disposition: Psych facility External Planned Provider: [facility] INPATIENT [facility]AC[facility] DCP follow-up note: CM CALLED [place] EXP[facility]OR, , SPOKE TO DAVID; INFORMED EXPEDITOR THAT PT IS MEDICALLY STABLE AND IN NEED OF INPATIENT PSYCHIATRIC PLACEMENT. DAVID REVIEWED RECORD AND OBSERVED THAT PT WAS ORIGINALLY REQUESTED FOR PSYCHIATRIC TRANSFER DUR TO [facility]. CM INFORMED EXPEDITOR THAT PT HAS BEEN DIAGNOSED WITH PSYCHOSIS. CM PROVIDED [facility] 2 CONTACT INFORMATION WELL CM CONTACT INFORMATION AND CONTACT PHONE [facility] FOR DR. SEYMOUR. CM WAITING [facility] PSYCHIATRIC UNIT TO CONTACT DOCTOR OR CM TO CONTINUE TRANSFER PROCESS. Nathan Helms, CASE MANAGEMENT Appended by Nathan Helms on 09/15/2018 16:41 CDT: CM CALLED [place] EXP[facility]OR, , SPOKE TO DAVID AT 1515 HOURS, REQUESTED UPDATE ON PLACEMENT REQUEST FOR INPATIENT PHYCHIATRIC CARE. PATIENT EXPEDITOR DAVID INFORMED CM THAT SCREENING NURSE, AVANI SHRESTHA, HAD GONE HOME FOR THE DAY AND SHOULD CONTACT CM IN THE MORNING. CM NOTIFIED CARRIE SNIDER. CM WAITING ON SCREENING AND ADMISSION DETERMINATION FROM [facility] [place]. NATHAN HELMS, CASE MANAGEMENT DCP- Discharge Planning Updated by [id number]: Gisela Zayas on 09/13/18 5:[address] Patient Name: JAMESON DEE Encounter No: [id number] : 1965 Primary Insurance: [employer] Anticipated DC Date: Planned Disposition: External Planned Provider: :[Ext Provider Name] DCP follow-up note: CM called the transfer center to follow on psych placement efforts and status. Thad with the transfer center stated they have faxed [facility] no return call at this time, [place] full for the evening, [place] no reply at this time, [place] - no return call, [place] no bed tonight, [facility] - no bed for tonight, [facility] no return call, [facility] no return call, [facility] no return call, [facility] no return call, [facility] no no return call, [facility] no return call. Thad stated as soon as they have a moment they will call back to the facilities that have not called her back. She stated she is currently working on a head bleed and once she completes that she will begin calling the other facilities back. Gisela Zayas RN, [facility] DCP- Discharge Planning Updated by [id number]: Gisela Zayas on 09/13/18 4:[address] Patient Name: JAMESON DEE Encounter No: [id number] : 1965 Primary Insurance: [employer] Anticipated DC Date: Planned Disposition: External Planned Provider: : DCP follow-up note: [facility] and [facility] told them to admit the patient here as they did not have geripsych. Gisela Zayas DCP- Discharge Planning Updated by [id number]: Gisela Zayas on 09/13/18 4:[address] Patient Name: JAMESON DEE Admission Status: ER Accout number: [id number] Admission Date: 09-12-2018 : 1965 Admission Diagnosis: Attending: EDMUND SARAVIA Current LOS: 1 Anticipated DC Date: Planned Disposition: Primary Insurance: [employer] Discharge Planning Comments: CM CONSULT FOR [facility] TRANSFER CENTER NOTIFIED AND PACKET SENT. Insurance Commissioner: Berna John DP export: 09/16/18 10:21 a Patient Name: JAMESON DEE Page 60077 at 1131 All edits/amendments must be made on the electronic document DICTATION DATE: 09/16/18 113 OCULARIST: ANA MARIA 09/16/18 1130 RPT#: [id number] DC DATE: STATUS: ADM IN [facility] [address] [place] [address] END OF REPORT
--- NOTE | 2018-09-16 14:00 | NUR ---
UP OUT OF BED IN [place]. ENCOURAGE TO RETURN TO ROOM. ASSIST WITH REDIRECTING BACK TO ROOM. SITTER OUTSIDE ROOM. ATIVAN ADMINISTERED ORDERED PRN. ASSIST BACK TO BED. CONTINUE SAFETY PRECAUTIONS AND PLAN OF CARE.
--- NOTE | 2018-09-16 15:08 | MORECARE ---
CASE MANAGEMENT DISCHARGE SUMMARY PATIENT: JAMESON DEE UNIT: [id number] ADM DATE: 09/12/18 AGE: 52 : 61 SEX: M ROOM/BED: D.3985 AUTHOR: YONY,DOC PHYSICIAN: REFERRING PHYSICIAN: EDMUND SRAAVIA MD DATE OF SERVICE: 09/16/18 Discharge Plan Patient Name: JAMESON DEE Facility: [facility]:[place] : 1965 Planned Disposition: Assisted Living Anticipated Discharge Date: 09/16/18 Discharge Date: Expected LOS: 4 Initial Reviewer: [id number] Initial Review Date: 09/12/2018 Generated: 09/16/18 4:08 pm Comments DCP- Discharge Planning Updated by [id number]: Bret Helms on 09/16/18 2:[address] Patient Name: JAMESON DEE Encounter No: [id number] : 1965 Primary Insurance: [employer] Anticipated DC Date: 09-16-2018 Planned Disposition: Assisted Living External Planned Provider: [facility] DCP follow-up note: CM RECEIVED CALL FROM AVANI SHRESTHA OF [facility] WHO INFORMED CM THAT PT IS NOT IN NEED OF ACUTE PSYCHIATRIC TREATMENT HIS PRIMARY DIAGNOSIS IS DEMENTIA. AVANI INFORMED CM THAT PT NEEDS HALFWAY FACILITY CARE THAT CAN DEAL WITH PT'S BEHAVIORS. ENRIQUE INFORMED CM THAT PT LIVES AT THE [facility] AND SHE BELIEVES HE IS IN MEMORY CARE UNIT. CM CALLED THE [facility], [phone], SPOKE TO LIONEL WHO INFORMED CM THAT SHE CALLED [facility]URDAY AND THEY SAID THEY WERE GOING TO TAKE PT INTO THE PSYCHIATRIC UNIT AND TO SEND PT TO THE EMERGENCY ROOM FOR TRANSFER. CM EXPLAINED WHAT AVANI SHRESTHA HAD INDICATED FROM [facility]. CM ASKED IF THE [facility] WILL SEND SOMEONE TO EVALUATE FOR RETURN. LIONEL WILL SPEAK TO [facility] AND IF PT DOES NOT TRANSFER, THEY WILL PROBABLY TAKE PT BACK INTO MEMORY CARE AT [facility]. CM WAITING DETERMINATION FOR READMIT TO THE [facility] MEMORY CARE UNIT. Bret Helms, CASE MANAGEMENT Appended by Bret Helms on 09/16/2018 15:01 CDT: DISCHARGE PLANNING NOTES: CM RECEIVED CALL FROM THE [facility], [phone], SPOKE TO LIONEL WHO INFORMED CM THAT SHE HAS NOT YET TALKED TO AVANI SHRESTHA AT [facility] YET. LIONEL WILL SPEAK TO [facility]. AVANI STATED THAT HER NURSE PRACTITIONER WANTS CM TO ATTEMPT TO SECURE INPATIENT PSYCHIATRIC CARE IN OTHER FACILITY. CM EXPLAINED THAT THE [facility] IS [facility] AND THE [facility] HAS INFORMED CM THAT THEY DO NOT FEEL PT NEEDS ACUTE INPATIENT PSYCHIATRIC CARE AND IF THE [facility] WILL NOT PAY FOR THE STAY IN INPATIENT PSYCHIATRIC UNIT, PT WOULD HAVE TO BE ACCEPTED SELF PAY. [facility] REPORTS PT ALSO HAS QUAL CHOICE INSURANCE. CM EXPLAINED THAT PT'S PAYOR SOURCE FOR HOSPTIAL STAY IS [facility] AND CM DID NOT THINK THAT OTHER INSURANCE WOULD PAY FOR INPATIENT PSYCHIATRIC CARE FROM THIS HOSPITAL STAY WITH ANOTHER PAYOR PRIMARY. CM CALLED [facility] CALL TRANSFER CENTER, , SPOKE TO NEELAM WHO INFORMED CM THAT THE TRANSFER CENTER HAS CONTINUED TO SEEK INPATIENT PSYCHIATRIC PLACEMENT AND PT HAS BEEN DENIED BY 19 FACILITIES. THE ONLY THREE THAT HAVE NOT DECLINED PT ARE [facility] (HAS NO BEDS AVAILABLE), [facility] (HAS NO BEDS AVAILABLE) AND [facility] (PACKET FAXED TO THE FACILITY WITH NO DETERMINATION OF YET). CM CALLED [facility] AT THE [facility], NOTIFIED OF DENIALS AND ONE OUTSTANDING REFERRAL TO INPATIENT PSYCHIATRIC FACILITY IN [place]. CM WAITING DETERMINATION FOR READMIT TO THE [facility] MEMORY CARE UNIT. PT HAS BEEN DECLINED AT 19 INPATIENT PSYCHIATRIC CARE FACLITIES WELL THE [facility]. THERE IS ONLY ONE PENDING REFERRAL AT [facility] IN [place] FOR INPATIENT PSYCHIATRIC CARE. Bret Helms, CASE MANAGEMENT DCP- Discharge Planning Updated by [id number]: Bret Helms on 09/15/18 3:[address] Patient Name: JAMESON DEE Encounter No: [id number] : 1965 Primary Insurance: [facility] [employer] Anticipated DC Date: 09-15-2018 Planned Disposition: Psych facility External Planned Provider: [facility]AC[facility] DCP follow-up note: CM CALLED [facility] EXP[facility], , SPOKE TO DAVID; INFORMED EXPEDITOR THAT PT IS MEDICALLY STABLE AND IN NEED OF INPATIENT PSYCHIATRIC PLACEMENT. DAVID REVIEWED RECORD AND OBSERVED THAT PT WAS ORIGINALLY REQUESTED FOR PSYCHIATRIC TRANSFER DUR TO [facility]. CM INFORMED EXPEDITOR THAT PT HAS BEEN DIAGNOSED WITH PSYCHOSIS. CM PROVIDED [facility] CONTACT INFORMATION WELL CM CONTACT INFORMATION AND CONTACT PHONE [facility] FOR DR. SEYMOUR. CM WAITING [facility] PSYCHIATRIC UNIT TO CONTACT DOCTOR OR CM TO CONTINUE TRANSFER PROCESS. Bret Helms, CASE MANAGEMENT Appended by Bret Helms on 09/15/2018 16:41 CDT: CM CALLED [facility] EXP[facility], , SPOKE TO DAVID AT 1515 HOURS, REQUESTED UPDATE ON PLACEMENT REQUEST FOR INPATIENT PHYCHIATRIC CARE. PATIENT EXPEDITOR DAVID INFORMED CM THAT SCREENING NURSE, AVANI SHRESTHA, HAD GONE HOME FOR THE DAY AND SHOULD CONTACT CM IN THE MORNING. CM NOTIFIED CARRIE SINDER. CM WAITING ON SCREENING AND ADMISSION DETERMINATION FROM [facility] [place]. BRET HELMS, CASE MANAGEMENT DCP- Discharge Planning Updated by [id number]: Gisela Zayas on 09/13/18 5:[address] Patient Name: JAMESON DEE Encounter No: [id number] : 1965 Primary Insurance: [employer] [facility] Anticipated DC Date: Planned Disposition: External Planned Provider: :[Ext Provider Name] DCP follow-up note: CM called the transfer center to follow on psych placement efforts and status. Thad with the transfer center stated they have faxed [facility] no return call at this time, [place] full for the evening, [place] no reply at this time, [place] - no return call, [place] no bed tonight, [place] - no bed for tonight, [facility] no [facility], [facility] no return call, [facility] no return call, [facility] no return call, [facility] no no return call, [facility] no return call. Thad stated as soon as they have a moment they will call back to the facilities that have not called her back. She stated she is currently working on a head bleed and once she completes that she will begin calling the other facilities back. Gisela Zayas RN, [facility] DCP- Discharge Planning Updated by [id number]: Gisela Zayas on 09/13/18 4:[address] Patient Name: JAMESON DEE Encounter No: [id number] : 1965 Primary Insurance: [employer] Anticipated DC Date: Planned Disposition: External Planned Provider: : DCP follow-up note: [facility] and they told them to admit the patient here as they did not have geripsych. Gisela Zayas DCP- Discharge Planning Updated by [id number]: Gisela Zayas on 09/13/18 4:[address] Patient Name: JAMESON DEE Admission Status: ER Accout number: [id number] Admission Date: 09-12-2018 : 1965 Admission Diagnosis: Attending: EDMUND SARAVIA Current LOS: 1 Anticipated DC Date: Planned Disposition: Primary Insurance: [facility] Discharge Planning Comments: CM CONSULT FOR PSYCH PLACEMENT TRANSFER CENTER NOTIFIED AND PACKET SENT. Hi Lo Driver: Berna John DP export: 09/16/18 10:31 a Patient Name: JAMESON DEE Page 52130 at 1508 All edits/amendments must be made on the electronic document DICTATION DATE: 09/16/181507 TITLE OFFICER: ANA MARIA 09/16/18 1508 RPT#: [id number] DC DATE: STATUS: ADM IN [facility] [address] [place] [address] END OF REPORT
[2018-09-16 15:32] VITALS: BP 119/65
--- NOTE | 2018-09-16 17:23 | MORECARE ---
CASE MANAGEMENT DISCHARGE SUMMARY PATIENT: JAMESON DEE UNIT: [id number] ADM DATE: 09/12/18 AGE: 52 : 61 SEX: M ROOM/BED: D.8585 AUTHOR: YONY,DOC PHYSICIAN: REFERRING PHYSICIAN: EDMUND SARAVIA MD DATE OF SERVICE: 09/16/18 Discharge Plan Patient Name: JAMESON DEE Facility: [facility]:[place] : 1965 Planned Disposition: Assisted Living Anticipated Discharge Date: 09/17/18 Discharge Date: Expected LOS: 5 Initial Reviewer: [id number] Initial Review Date: 09/12/2018 Generated: 09/16/18 6:23 pm Comments DCP- Discharge Planning Updated by [id number]: Bret Helms on 09/16/18 4:[address] Patient Name: JAMESON DEE Encounter No: [id number] : 1965 Primary Insurance: [employer] Anticipated DC Date: 09-16-2018 Planned Disposition: Assisted Living External Planned Provider: [facility] DCP follow-up note: CM RECEIVED CALL FROM AVANI SHRESTHA OF [facility] WHO INFORMED CM THAT PT IS NOT IN NEED OF ACUTE PSYCHIATRIC TREATMENT HIS PRIMARY DIAGNOSIS IS DEMENTIA. AVANI INFORMED CM THAT PT NEEDS LONGTERM FACILITY CARE THAT CAN DEAL WITH PT'S BEHAVIORS. ENRIQUE INFORMED CM THAT PT LIVES AT THE [facility] AND SHE BELIEVES HE IS IN MEMORY CARE UNIT. CM CALLED THE [facility], [phone], SPOKE TO LIONEL WHO INFORMED CM THAT SHE CALLED THE [place] ON SATURDAY AND THEY SAID THEY WERE GOING TO TAKE PT INTO THE PSYCHIATRIC UNIT AND TO SEND PT TO THE EMERGENCY ROOM FOR TRANSFER. CM EXPLAINED WHAT AVANI SHRESTHA HAD INDICATED FROM [facility]. CM ASKED IF THE [facility] WILL SEND SOMEONE TO EVALUATE FOR RETURN. LIONEL WILL SPEAK TO [place] AND IF PT DOES NOT TRANSFER, THEY WILL PROBABLY TAKE PT BACK INTO MEMORY CARE AT [facility]. CM WAITING DETERMINATION FOR READMIT TO THE [facility] CARE UNIT. Bret Helms, CASE MANAGEMENT Appended by Bret Helms on 09/16/2018 15:01 CDT: DISCHARGE PLANNING NOTES: CM RECEIVED CALL FROM THE [facility], [phone], SPOKE TO LIONEL WHO INFORMED CM THAT SHE HAS NOT YET TALKED TO AVANI SHRESTHA AT [place] YET. LIONEL WILL SPEAK TO [facility]. AVANI STATED THAT HER NURSE PRACTITIONER WANTS CM TO ATTEMPT TO SECURE INPATIENT PSYCHIATRIC CARE IN OTHER FACILITY. CM EXPLAINED THAT [facility] AND THE [facility] HAS INFORMED CM THAT THEY DO NOT FEEL PT NEEDS ACUTE INPATIENT PSYCHIATRIC CARE AND IF THE [facility] WILL NOT [facility] THE STAY IN INPATIENT PSYCHIATRIC UNIT, PT WOULD HAVE TO BE ACCEPTED SELF PAY. ALLEN REPORTS PT ALSO HAS QUAL CHOICE INSURANCE. CM EXPLAINED THAT PT'S PAYOR SOURCE FOR HOSPTIAL STAY IS [place] AND CM DID NOT THINK THAT OTHER INSURANCE WOULD PAY FOR INPATIENT PSYCHIATRIC CARE FROM THIS HOSPITAL STAY WITH ANOTHER PAYOR PRIMARY. CM CALLED [facility], , SPOKE TO NEELAM WHO INFORMED CM THAT THE TRANSFER CENTER HAS CONTINUED TO SEEK INPATIENT PSYCHIATRIC PLACEMENT AND PT HAS BEEN DENIED BY 19 FACILITIES. THE ONLY THREE THAT HAVE NOT DECLINED PT ARE [facility] (HAS NO BEDS AVAILABLE), [facility] (HAS NO BEDS AVAILABLE) AND [facility] (PACKET FAXED TO THE FACILITY WITH NO DETERMINATION OF YET). CM CALLED ALLEN AT THE [facility], NOTIFIED OF DENIALS AND ONE OUTSTANDING REFERRAL TO INPATIENT PSYCHIATRIC FACILITY IN [place]. CM WAITING DETERMINATION FOR READMIT TO THE [facility] MEMORY CARE UNIT. PT HAS BEEN DECLINED AT 19 INPATIENT PSYCHIATRIC CARE FACLITIES [place] [place] [facility]. THERE IS ONLY ONE PENDING REFERRAL AT [facility] IN [place] FOR INPATIENT PSYCHIATRIC CARE. Bret Helms, CASE MANAGEMENT Appended by Bret Helms on 09/16/2018 17:18 CDT: CM RECEIVED CALL FROM LIONEL AND SITA ACOSTA OF THE [facility]. SITA IS LINE HAUL DRIVER FOR THE FACILITY AND WILL COME TO EVALUATE PT FOR RETURN TO THE [facility] IN THE MORNING. LIONEL REPORTS SHE DID NOT RECEIVE ANY RETURN CALL FROM AVANI SHRESTHA AT THE [place]. CM RECEIVED CALL FROM CAROL ANN USMAN, PT'S DAUGHTER, , WHO REPORTS TO BE PT'S POWER OF STIFF LEG OPERATOR. SHE IS IN AGREEMENT WITH PT'S RETURN TO THE [facility]. CAROL ANN REPORTS THAT BEFORE PT IS PRESCRIBED ANY MEDICATION, CAROL ANN SHOULD BE NOTIFIED AT [phone]. CAROL ANN REPORTS PT IS A DNR/DNI. CM WAITING DETERMINATION FOR READMIT TO THE [facility]. PT HAS BEEN DECLINED AT 19 INPATIENT PSYCHIATRIC CARE FACLITIES [place] [facility] [facility]. THERE IS ONLY ONE PENDING REFERRAL AT [facility] IN [place] FOR INPATIENT PSYCHIATRIC CARE. Bret Helms, CASE MANAGEMENT DCP- Discharge Planning Updated by [id number]: Bret Helms on 09/15/18 3:[address] Patient Name: JAMESON DEE Encounter No: [id number] : 1965 Primary Insurance: [employer] Anticipated DC Date: 09-15-2018 Planned Disposition: Psych facility External Planned Provider: [facility] DCP follow-up note: CM CALLED [place] EXP[facility], , SPOKE TO DAVID; INFORMED EXPEDITOR THAT PT IS MEDICALLY STABLE AND IN NEED OF INPATIENT PSYCHIATRIC PLACEMENT. DAVID REVIEWED RECORD AND OBSERVED THAT PT WAS ORIGINALLY REQUESTED FOR PSYCHIATRIC TRANSFER DUR TO [facility]. CM INFORMED EXPEDITOR THAT PT HAS BEEN DIAGNOSED WITH PSYCHOSIS. CM PROVIDED [employer] 2 CONTACT INFORMATION WELL CM CONTACT INFORMATION AND CONTACT PHONE [facility]. CM WAITING [facility] PSYCHIATRIC UNIT TO CONTACT DOCTOR OR CM TO CONTINUE TRANSFER PROCESS. Bret Helms, CASE MANAGEMENT Appended by Bret Helms on 09/15/2018 16:41 CDT: CM CALLED [facility], , SPOKE TO DAVID AT 1515 HOURS, REQUESTED UPDATE ON PLACEMENT REQUEST FOR INPATIENT PHYCHIATRIC CARE. PATIENT EXPEDITOR DAVID INFORMED CM THAT SCREENING NURSE, AVANI SHRESTHA, HAD GONE HOME FOR THE DAY AND SHOULD CONTACT CM IN THE MORNING. CM NOTIFIED CARRIE SNIDER. CM WAITING ON SCREENING AND ADMISSION DETERMINATION FROM [facility] [place]. BRET HELMS, CASE MANAGEMENT DCP- Discharge Planning Updated by [id number]: Gisela Zayas on 09/13/18 5:[address] Patient Name: JAMESON DEE Encounter No: [id number] : 1965 Primary Insurance: [facility] [employer] Anticipated DC Date: Planned Disposition: External Planned Provider: :[Ext Provider Name] DCP follow-up note: CM called the transfer center to follow on psych placement efforts and status. Thad with the transfer center stated they have faxed [facility] no return call at this time, [facility] full for the evening, [facility] no reply at this time, [facility] - no return call, [facility] no bed tonight, [facility] - no bed for tonight, [facility] return call, [facility] no return call, [facility] no return call, [facility] no return call, [facility] no no return call, [facility] no return call. Thad stated as soon as they have a moment they will call back to the facilities that have not called her back. She stated she is currently working on a head bleed and once she completes that she will begin calling the other facilities back. Gisela Zayas RN, [facility] DCP- Discharge Planning Updated by [id number]: Gisela Zayas on 09/13/18 4:[address] Patient Name: JAMESON DEE Encounter No: [id number] : 1965 Primary Insurance: [employer] Anticipated DC Date: Planned Disposition: External Planned Provider: : DCP follow-up note: [facility] told [facility] to [facility] the patient here as they did not have geripsych. Gisela Zayas DCP- Discharge Planning Updated by [id number]: Gisela Zayas on 09/13/18 4:[address] Patient Name: JAMESON DEE Admission Status: ER Accout number: [id number] Admission Date: 09-12-2018 : 1965 Admission Diagnosis: Attending: EDMUND SARAVIA Current LOS: 1 Anticipated DC Date: Planned Disposition: Primary Insurance: [employer] Discharge Planning Comments: CM CONSULT FOR [facility] TRANSFER CENTER NOTIFIED AND PACKET SENT. Appraiser Land: Berna John DP export: 09/16/18 2:08 p Patient Name: JAMESON DEE Page [phone] at 1723 All edits/amendments must be made on the electronic document DICTATION DATE: 09/16/181721 FOOD AND NUTRITION TEACHER: ANA MARIA 09/16/181721 RPT#: [id number] DC DATE: STATUS: ADM IN [facility] [address] [place] [address] END OF REPORT
--- NOTE | 2018-09-16 18:17 | NUR ---
RESTING IN BED WITH EYES CLOSED. RESPIRATIONS EVEN AND REGULAR. NO SIGNS OF DISTRESS. SPOKE WITH DAUGHTER ON PHONE. DAUGHTER CAROL ANN YOUSSEF STATES, "MY DAD IS A DNR AND I WANT TO BE NOTIFIED BEFORE MEDICATIONS ADMINISTERED." INFORM CAROL ANN MESSAGE WILL BE PASSED IN REPORT. CONTINUE PLAN OF CARE AND SAFETY PRECAUTIONS.
--- NOTE | 2018-09-16 19:05 | NUR ---
PT ASLEEP, NO S/S OF DISTRESS. PT RESP EVEN AND UNLABORED. NAME AND DATE PLACED ON BOARD. BEDLOW AND CALL LIGHT IN REACH. ALARM ON AND ACTIVE. WILL CPOC
--- NOTE | 2018-09-16 19:33 | NUR ---
PT ALARM WENT OFF. PT NOW SITTING ON SIDE OF BED, WARMED UP DINNER TRAY AND PT IS EATING. PT DENIES ANY NEEDS. NO S/S OF DISTRESS. ALARM ON AND ACTIVE. WILL CPOC
[2018-09-16 20:00] VITALS: BP 129/83
--- NOTE | 2018-09-16 21:29 | NUR ---
NIGHT MEDICATIONS GIVEN. PT COMPLIANT. ALERT TO NAME AND ONLY. PT S1S2 RRR, FINE CRACKLES IN DIMINISHED LOWER LOBES. PT LAID DOWN AFTER MEDICATIONS. WATCHING TV. FOLLOWING COMMANDS AT THIS TIME. NO S/S OF DISTRESS. CALL LIGHT IN REACH. ALARM ON AND ACTIVE. WILL CPOC
--- NOTE | 2018-09-16 22:22 | NUR ---
PT SITTING ON SIDE OF BED. SET UP ONCE TO WALK AROUND. ALERTED NURSE WITH ALARM. PT ALERT TO NAME AND ONLY. REORIENTED PT TO ROOM AND PLAN OF CARE. PT VERBALIZED UNDERSTANDING. ASSISTED PT WITH STRAIGHTING BED. PT DENIES ANY OTHER NEEDS. NO S/S OF DISTRESS. ALARM ON AND ACTIVE. WILL CPOC
[2018-09-17] VITALS: BP 128/70
--- NOTE | 2018-09-17 00:48 | NUR ---
PT ASLEEP AT THIS TIME. LAYING ON RIGHT SIDE. NO S/S OF DISTRESS. BEDLOW AND CALL LIGHT IN REACH. ALARM ON AND ACTIVE. WILL CPOC
[2018-09-17 04:00] VITALS: BP 138/87
--- NOTE | 2018-09-17 04:11 | NUR ---
PT SET ON SIDE OF BED. ALERT TO NAME AND ONLY. NURSE ALERTED BY ALARM. PT ASKED WITH GARBLED SPEECH WHAT TIME IT IS. OFFERED FOOD,WATER AND RESTROOM THEN ASSISTED PT BACK TO BED. ALARM ON AND ACTIVE. NO S/S OF DISTRESS. WILL CPOC
--- NOTE | 2018-09-17 06:06 | NUR ---
PT GETTING UP, FOLLOWS COMMANDS AND SITS BACK DOWN. NURSE GOT PT AN ENSURE. PT SITTING ON SIDE OF BED DRINKING ENSURE. PO ATIVAN GIVEN FOR RESTLESSNESS AND AGITATION. PT ALARM ON AND ACTIVE. WILL CPOC
[2018-09-17 06:13] LABS: BASOPHILS 0.1 % (0-2); EOSINOPHILS 2.2 % (0-7); HEMATOCRIT 44.2 % (42.0-54.0); HEMOGLOBIN 14.7 g/dL (13.5-17.5); IMMATURE GRANULOCYTES 0.2 % (0-5); LYMPHOCYTES 37.2 % (15-50); MCH 27.9 pg (26.0-34.0); MCHC 33.3 g/dL (31.0-37.0); NEUTROPHILS 49.3 % (40-80); PLATELET COUNT 222 10x3/uL (130-400); RBC 5.26 10x6/uL (4.20-6.10); RDW 14.2 % (11.5-14.5); WBC 8.1 10x3/uL (4.8-10.8)
--- NOTE | 2018-09-17 06:14 | NUR ---
PT ASSISTED WITH LAYING DOWN WITH HOB ELEVATED. PT ALARM ON AND ACTIVE. WILL CPOC
[2018-09-17 06:38] LABS: ALBUMIN 3.4 g/dL (3.4-5.0); ANION GAP 10.7 mmol/L (8-16); BILIRUBIN - TOTAL 0.52 mg/dL (0.2-1.3); CALCIUM 9.3 mg/dL (8.5-10.1); CARBON DIOXIDE 30.9 mmol/L (21.0-32.0); CREATININE - SERUM 1.1 mg/dL (0.6-1.3); POTASSIUM - SERUM 3.6 mmol/L (3.5-5.1); PROTEIN - SERUM 7.6 g/dL (6.4-8.2)
--- NOTE | 2018-09-17 07:27 | NUR ---
PT RESTING IN BED EYES CLOSED. RESPIRATIONS EVEN AND REGULAR. NO SIGN OF DISTRESS. BED ALARM ON. BED AT LOWEST POSITION. CALL LIGHT WITHIN REACH. WILL CONTINUE TO MONITOR.
[2018-09-17 08:33] VITALS: BP 138/78
--- NOTE | 2018-09-17 11:54 | NUR ---
PT RESTING COMFORTABLY IN BED, AROUSES TO STIMULI. ASKED PT IF HE WANTED TO EAT SOME LUNCH. PT OPENED HIS EYES AND STATED " MAYBE LATER" AND CLOSED HIS EYES AGAIN. NAD NOTED, CALL LIGHT IN REACH, BEDSIDE RAILS X2, BED LOW, WILL CONITNUE TO MONITOR.
--- NOTE | 2018-09-17 14:49 | NUR ---
PT RESTING IN BED EYES CLOSED. RESPIRATIONS EVEN AND REGULAR. DENIES NEEDS AT THIS TIME. ABLE TO FOLLOW AND RESPOND TO VERBAL COMMANDS. BEDRAILS UP X2. CALL LIGHT WITHIN REACH. WILL CONTINUE TO MONITOR.
--- NOTE | 2018-09-17 15:18 | NUR ---
CLEANED PT UP FROM INCONT EPISODE, PT MORE ALERT NOW, WILL GET HIM A LUNCH TRAY. PT DENIES ANY OTHER NEEDS AT THIS TIME. CALL LIGHT IN REACH, FERNANDO ALARM ON, NAD NOTED, WILL CONITNUE PLAN OF CARE.
--- NOTE | 2018-09-17 15:39 | MORECARE ---
CASE MANAGEMENT DISCHARGE SUMMARY PATIENT: JAMESON DEE UNIT: [id number] ADM DATE: 09/12/18 AGE: 52 : 61 SEX: M ROOM/BED: D.5845 AUTHOR: YONY,DOC PHYSICIAN: REFERRING PHYSICIAN: EDMUND SARAVIA MD DATE OF SERVICE: 09/17/18 Discharge Plan Patient Name: JAMESON DEE Facility: [facility]:[place] : 1965 Planned Disposition: Assisted Living Anticipated Discharge Date: 09/17/18 Discharge Date: Expected LOS: 5 Initial Reviewer: [id number] Initial Review Date: 09/12/2018 Generated: 09/17/18 4:38 pm Comments DCP- Discharge Planning Updated by [id number]: Eunice Palmer on 09/17/18 2:[address] @0707 I RECEIVED A STICKY NOTE THIS AM FROM THE BEDSIDE NURSE, IMELDA, THAT REQUESTED I CALL DARIA ACOSTA @ [phone] SOON I COULD IN REGARDS TO THIS PATIENT (I WAS TOLD LAST NIGHT THAT THIS INDIVIDUAL WOULD BE HERE THIS AM TO EVALUATE THIS PATIENT TO DETERMINE IF THE [facility] COULD TAKE HIM BACK). I PLACED A CALL AND LEFT A VOICE MAIL THAT I RECEIVED THE STICKY NOTE AND GAVE HIM MY RETURN NUMBER. I RECEIVED A RETURN CALL FROM HIM A SHORT TIME LATER AND WE DISCUSSED HIM COMING BACK. HE WANTED THE NUMBER TO [facility] SHRESTHA AT [facility]. I WAS UNABLE TO FIND THIS NUMBER, BUT @ 4614 LET DARIA KNOW THAT PER [facility]'S DOCUMENTATION THE NUMBER WAS GIVEN TO LIONEL YESTERDAY. I HEARD NOTHING BACK FROM HIM. @0909, I RECEIVED A CALL FROM LEILA AT THE [facility]. SHE STATED THAT [facility] AND NOW [facility] TRYING TO REFER HIM TO [facility] FOR MEDICATION ADJUSTMENTS AND THEY WILL LET HER KNOW IN ABOUT AN HOUR IF THEY WILL ACCEPT HIM OR NOT AND SHE WILL LET ME KNOW, AND IF NOT THEY WOULD TAKE HIM BACK AND SHE WOULD CONTINUE TO WORK ON GETTING HIM INTO [facility]. SHE STATED THAT SHE HAS A FRIEND THAT WORKS THERE WHO SHE WOULD BE WORKING WITH. I REMINDED HER THAT 19 INPATIENT UNITS HAD REFUSED HIM AND THERE WERE ONLY 3 LEFT THAT WERE CONSIDERING HIM. SHE STATED SHE KNEW AND SHE WOULD LET ME KNOW SOON SHE KNEW. AFTER I HUNG UP THE PHONE WITH HER, THE [facility] NURSE IMELDA STATED THAT [facility] WOULD ACCEPT THE PATIENT, BUT HE WOULD HAVE TO BE SENT TO THEIR ER AND EVALUATED FIRST. THE PATIENT DOES NOT HAVE A PLACE TO GO AT DISCHARGE CURRENTLY AND IF WE SENT HIM ALL THE WAY THERE AND THEY DECIDED THAT HE DID NOT HAVE AN INPATIENT NEED, WHERE WOULD HE GO? NEAR 1300, I HAD NOT HAD ANY RETURN CALL, SO I CALLED AND LEFT A MESSAGE FOR THEM TO PLEASE CALL ME BACK. SHORTLY AFTER 1400 ANOTHER MESSAGE WAS LEFT. @1443 RECEIVED A RETURN CALL FROM DARIA ACOSTA, AND REVIEWED THE AM CONVERSATON WITH LEILA. HE STATED THAT THEY HAVE NOT HEARD BACK FROM THE [facility] AND THEY WERE WAITING. HE ALSO STATED THAT THEY NEEDED SCRIPTS, NOT FROM DR SARAVIA BUT FROM DR KHAN FOR ALL NEW MEDICATOINS THE PATIENT WAS PUT ON. I CLARIFIED IF THEY WOULD TAKE THIS PATIENT BACK TODAY OR IF THEY WERE PLANNING TO LEAVE HIM HERE UNTIL PLACEMENT WAS FOUND. WITHOUT DIRECTLY STATING IT, HE EMPLYED THAT THEY WERE NOT TAKING THE PATIENT BACK. SOON I HUNG UP WITH DRAIA, THERE WAS A CALL WAITING FOR ME. IT WAS HEYDI MAHARAJ WITH THE [facility]. I GAVE HER AN UPDATE ON THE EVENTS OF THE DAY WITH LEILA AND DARIA. EXPLAINED THAT THE DOCTOR IS WANTING TO KNOW WHAT IS GOING ON WITH THIS PATIENT AND THEY WERE WANTING HIM OUT OF HERE TODAY. SHE STATED THAT THEY WOULD BE ABLE TO TAKE HIM BACK BUT THEY WOULD HAVE TO HAVE AN OUTPATIENT FOLLOW UP APPOINTMENT WITH THE [facility] (WHICH I EXPLAINED WE MAY BE ABLE TO DO, BUT SOMETIMES THEY WILL). SHE ALSO STATED THAT THEY WOULD HAVE TO HAVE A SCRIPT FOR ALL HIS NEW MEDICATIONS TO LAST UNTIL THE APPOINTMENT. I EXPLAINED THAT DR SEYMOUR WOULD BE ABLE TO DO THAT. SHE SAID THAT IS WHAT THEY WOULD NEED IN ORDER TO TAKE HIM BACK. I REQUESTED A DIRECT NUMBER TO GET WITH HER AND SHE GAVE ME HER CALL NUMBER OF [phone]. UPON CALLING THE [facility], THE PATIENT ALREADY HAD AN APPOINTMENT SCHEDULED FOR September @ 0930. I CALLED CAROL ANN AND LET HER KNOW THIS. SHE STATED SHE WOULD HAVE TO CALL ME RIGHT BACK. UPON HER RETURN CALL, SHE STATED THAT THIS APPOINTMENT WOULD BE FINE. SHE STATED THAT THEY DID NOT HAVE TRANSPORT FOR TODAY, AND COULD ARRANGE TRANSPORT FOR IN THE AM. TRANSPORT IS SET UP FOR AT 0800 TOMORROW 09/18. SHE HAS REQUESTED THAT WE HAVE THE SCRIPTS FOR ALL MEDICATOINS AND FAX HER THE DISCHARGE STUFF TONIGHT TO [phone] SO THAT THEY CAN BE WORKING ON GETTING THINGS READY. I HAVE RELAYED THIS INFORMATION TO DYLAN OLIVO CM SECONDARY TO IT IS ALMOST THE END OF MY DAY, AND SHE WILL FOLLOW THROUGH WITH THIS. I SENT MARGO SNIDER APN A MESSAGE AND RECIEVED AN ALMOST INSTANT RETURN CALL. ALL THE ABOVE HAS BEEN EXPLAINED IN SHORTER FORMAT. SHE WILL PUT THE DISCHARGE IN AND IS TRYING TO SEE IF DR SEYMOUR IS HERE TO WHERE HE COULD SIGN SCRIPTS SO THAT EVERYTING WILL BE READY TO GO IN THE AM. I AM WAITING FOR A RETURN CALL FROM HER AND WILL RELAY ANY LOOSE STRINGS TO [facility]. DCP- Discharge Planning Updated by [id number]: Bret Helms on 09/16/18 4:[address] Patient Name: JAMESON DEE Encounter No: [id number] : 1965 Primary Insurance: [employer]MINIST[employer]ATION Anticipated DC Date: 09-16-2018 Planned Disposition: Assisted Living External [facility] follow-up note: CM RECEIVED CALL FROM VAANI SHRESTHA OF [facility] WHO INFORMED CM THAT PT IS NOT IN NEED OF ACUTE PSYCHIATRIC TREATMENT HIS PRIMARY DIAGNOSIS IS DEMENTIA. AVANI INFORMED CM THAT PT NEEDS USP FACILITY CARE THAT CAN DEAL WITH PT'S BEHAVIORS. ENRIQUE INFORMED CM THAT PT LIVES AT THE [facility] AND SHE BELIEVES HE IS IN MEMORY CARE UNIT. CM CALLED THE [facility], [phone], SPOKE TO LIONEL WHO INFORMED CM THAT SHE CALLED [facility] ON SATURDAY AND THEY SAID THEY WERE GOING TO TAKE PT INTO THE PSYCHIATRIC UNIT AND TO SEND PT TO THE EMERGENCY ROOM FOR TRANSFER. CM EXPLAINED WHAT AVANI SHRESTHA HAD INDICATED FROM [facility]. CM ASKED IF THE [facility] WILL SEND SOMEONE TO EVALUATE FOR RETURN. LIONEL WILL SPEAK TO [facility] AND IF PT DOES NOT TRANSFER, THEY WILL PROBABLY TAKE PT BACK INTO MEMORY CARE AT [facility]. CM WAITING DETERMINATION FOR READMIT TO THE [facility] UN[facility]. Bret Helms, CASE MANAGEMENT Appended by Bret Helms on 09/16/2018 15:01 CDT: DISCHARGE PLANNING NOTES: CM RECEIVED CALL FROM THE [facility], [phone], SPOKE TO LIONEL WHO INFORMED CM THAT SHE HAS NOT YET TALKED TO AVANI SHRESTHA AT [facility] YET. LIONEL WILL SPEAK TO [facility]. AVANI STATED THAT HER NURSE PRACTITIONER WANTS CM TO ATTEMPT TO SECURE INPATIENT PSYCHIATRIC CARE IN OTHER FACILITY. CM EXPLAINED THAT THE [facility] IS [facility]S [facility] S[facility] AND THE [facility] HAS INFORMED CM THAT THEY DO NOT FEEL PT NEEDS ACUTE INPATIENT PSYCHIATRIC CARE AND IF THE [facility] WILL NOT PAY FOR THE STAY IN INPATIENT PSYCHIATRIC UNIT, PT WOULD HAVE TO BE ACCEPTED SELF PAY. [facility] REPORTS PT ALSO HAS QUAL CHOICE INSURANCE. CM EXPLAINED THAT PT'S PAYOR SOURCE FOR HOSPTIAL STAY IS [facility] AND CM DID NOT THINK THAT OTHER INSURANCE WOULD PAY FOR INPATIENT PSYCHIATRIC CARE FROM THIS HOSPITAL STAY WITH ANOTHER PAYOR PRIMARY. CM CALLED [facility] CALL TRANSFER CENTER, , SPOKE TO NEELAM WHO INFORMED CM THAT THE TRANSFER CENTER HAS CONTINUED TO SEEK INPATIENT PSYCHIATRIC PLACEMENT AND PT HAS BEEN DENIED BY 19 FACILITIES. THE ONLY THREE THAT HAVE NOT DECLINED PT ARE [facility] (HAS NO BEDS AVAILABLE), [facility] (HAS NO BEDS AVAILABLE) AND [facility] (PACKET FAXED TO THE FACILITY WITH NO DETERMINATION OF YET). CM CALLED ALLEN AT THE [facility], NOTIFIED OF DENIALS AND ONE OUTSTANDING REFERRAL TO INPATIENT PSYCHIATRIC FACILITY IN [place]. CM WAITING DETERMINATION FOR READMIT TO THE [facility]ARE UNIT. PT HAS BEEN DECLINED AT 19 INPATIENT PSYCHIATRIC CARE FACLITIES [facility]. THERE IS ONLY ONE PENDING REFERRAL AT [facility] IN [place] FOR INPATIENT PSYCHIATRIC CARE. Bret Helms, CASE MANAGEMENT Appended by Bret Helms on 09/16/2018 17:18 CDT: CM RECEIVED CALL FROM LIONEL AND SITA ACOSTA OF THE [facility]. SITA IS WASHER REPAIRMAN FOR THE FACILITY AND WILL COME TO EVALUATE PT FOR RETURN TO THE [facility] IN THE MORNING. LIONEL REPORTS SHE DID NOT RECEIVE ANY RETURN CALL FROM AVANI SHRESTHA AT THE [facility]. CM RECEIVED CALL FROM CAROL ANN MARY, PT'S DAUGHTER, , WHO REPORTS TO BE PT'S POWER OF MANAGER WIND. SHE IS IN AGREEMENT WITH PT'S RETURN TO THE [facility]. CAROL ANN REPORTS THAT BEFORE PT IS PRESCRIBED ANY MEDICATION, CAROL ANN SHOULD BE NOTIFIED AT [phone]. CAROL ANN REPORTS PT IS A DNR/DNI. CM WAITING DETERMINATION FOR READMIT TO THE [facility]. PT HAS BEEN DECLINED AT 19 INPATIENT PSYCHIATRIC CARE FACLITIES [facility]. THERE IS ONLY ONE PENDING REFERRAL AT [facility] IN [place] FOR INPATIENT PSYCHIATRIC CARE. Bret Helms, CASE MANAGEMENT DCP- Discharge Planning Updated by [id number]: Bret Helms on 09/15/18 3:[address] Patient Name: JAMESON DEE Encounter No: [id number] : 1965 Primary Insurance: [employer] Anticipated DC Date: 09-15-2018 Planned Disposition: Psych facility External Planned Provider: [facility] DCP follow-up note: CM CALLED [facility] EXPEDITOR, , SPOKE TO DAVID; INFORMED EXPEDITOR THAT PT IS MEDICALLY STABLE AND IN NEED OF INPATIENT PSYCHIATRIC PLACEMENT. DAVID REVIEWED RECORD AND OBSERVED THAT PT WAS ORIGINALLY REQUESTED FOR PSYCHIATRIC TRANSFER DUR TO [facility]. CM INFORMED EXPEDITOR THAT PT HAS BEEN DIAGNOSED WITH PSYCHOSIS. CM PROVIDED [facility] 2 CONTACT INFORMATION WELL CM CONTACT INFORMATION AND CONTACT PHONE [facility] FOR DR. SEYMOUR. CM WAITING [facility] TO CONTACT DOCTOR OR CM TO CONTINUE TRANSFER PROCESS. Bret Helms, CASE MANAGEMENT Appended by Bret Helms on 09/15/2018 16:41 CDT: CM CALLED [facility], , SPOKE TO DAVID AT 1515 HOURS, REQUESTED UPDATE ON PLACEMENT REQUEST FOR INPATIENT PHYCHIATRIC CARE. PATIENT EXPEDITOR DAVID INFORMED CM THAT SCREENING NURSE, AVANI SHRESTHA, HAD GONE HOME FOR THE DAY AND SHOULD CONTACT CM IN THE MORNING. CM NOTIFIED CARRIE SNIDER. CM WAITING ON SCREENING AND ADMISSION DETERMINATION FROM [facility] [place]. BRET HELMS, CASE MANAGEMENT DCP- Discharge Planning Updated by [id number]: Gisela Zayas on 09/13/18 5:[address] Patient Name: JAMESON DEE Encounter No: [id number] : 1965 Primary Insurance: [facility] Anticipated DC Date: Planned Disposition: External Planned Provider: :[Ext Provider Name] DCP follow-up note: CM called the transfer center to follow on psych placement efforts and status. Thad with the transfer center stated they have faxed [facility] no return call at this time, [facility] full for the evening, [facility] no reply at this time, [facility] - no return call, [facility] no bed tonight, [facility] - no bed for tonight, [facility] return call, [facility] no return call, [facility] no return call, [facility] no return call, [facility] no no return call, [facility] no return call. Thad stated as soon as they have a moment they will call back to the facilities that have not called her back. She stated she is currently working on a head bleed and once she completes that she will begin calling the other facilities back. Gisela Zayas RN, [facility] DCP- Discharge Planning Updated by [id number]: Gisela Zayas on 09/13/18 4:[address] Patient Name: JAMESON DEE Encounter No: [id number] : 1965 Primary Insurance: [employer] Anticipated DC Date: Planned Disposition: External Planned Provider: : DCP follow-up note: [facility] and [facility] told them to [facility] the patient here as they did not have geripsych. Gisela Zayas DCP- Discharge Planning Updated by [id number]: Gisela Zayas on 09/13/18 4:[address] Patient Name: JAMESON DEE Admission Status: ER Accout number: [id number] Admission Date: 09-12-2018 : 1965 Admission Diagnosis: Attending: EDMUND SARAVIA Current LOS: 1 Anticipated DC Date: Planned Disposition: Primary Insurance: [employer] Discharge Planning Comments: CM CONSULT FOR [facility] NOTIFIED AND PACKET SENT. Stationary Engineer Apprentice: Berna John DP export: 09/16/18 4:23 p Patient Name: JAMESON DEE Page [id number] at 1539 All edits/amendments must be made on the electronic document DICTATION DATE: 09/17/181537 [employer] CONSULTANT: ANA MARIA 09/17/181537 RPT#: [id number] DC DATE: STATUS: ADM IN [facility] [address] [place] [address] END OF REPORT
[2018-09-17 15:46] VITALS: BP 130/71
[2018-09-17] MEDS ORDERED: DEPAKOTE500 MG PO (16:13)
[2018-09-17] MEDS ORDERED: KEPPRA500 MG PO (16:13)
[2018-09-17] MEDS ORDERED: ZYPREXA10 MG PO (16:13)
--- NOTE | 2018-09-17 20:56 | NUR ---
HS MEDS GIVEN WITH FRESH ICE WATER. PT DENIES PAIN. ALARM IN USE FOR PT SAFETY.
--- NOTE | 2018-09-17 23:14 | NUR ---
PT OUT OF BED AND INTO [facility] MULTIPLE TIMES, ATTEMPTING TO GO INTO OTHER PTS ROOMS. ESCORTED PT BACK TO BED, ATIVAN 2 MGS GIVEN PO FOR S/S AGITATION.
[2018-09-18 04:18] LABS: BASOPHILS 0.3 % (0-2); EOSINOPHILS 1.7 % (0-7); HEMATOCRIT 43.3 % (42.0-54.0); HEMOGLOBIN 14.6 g/dL (13.5-17.5); IMMATURE GRANULOCYTES 0.2 % (0-5); LYMPHOCYTES 39.7 % (15-50); MCH 28.1 pg (26.0-34.0); MCHC 33.7 g/dL (31.0-37.0); MCV 83.3 fL (80.0-100.0); MEAN PLATELET VOLUME 11.1 fL (7.4-10.4); MONOCYTES 9.4 % (2-11); NEUTROPHILS 48.7 % (40-80); PLATELET COUNT 238 10x3/uL (130-400); WBC 8.6 10x3/uL (4.8-10.8)
[2018-09-18 04:46] LABS: ALBUMIN 3.3 g/dL (3.4-5.0); ALKALINE PHOSPHATASE 82 U/L (46-116); ALT (SGPT) 84 U/L (10-68); BILIRUBIN - TOTAL 0.51 mg/dL (0.2-1.3); CALC OSMOLALITY 289 mosm/kg (275-300); CALCIUM 8.8 mg/dL (8.5-10.1); CARBON DIOXIDE 28.7 mmol/L (21.0-32.0); CHLORIDE - SERUM 109 mmol/L (98-107); CREATININE - SERUM 0.9 mg/dL (0.6-1.3); GLUCOSE 85 mg/dL (74-106); POTASSIUM - SERUM 3.5 mmol/L (3.5-5.1); PROTEIN - SERUM 7.4 g/dL (6.4-8.2); SODIUM 146 mmol/L (136-145); UREA NITROGEN 12 mg/dL (7-18); eGFR NON AFRICAN AMERICAN > 90 mL/min (90-120)
--- NOTE | 2018-09-18 05:16 | NUR ---
SCHEDULING AGENT AT BED SIDE, BATH AND LINEN CHANGE COMPLETE.
--- NOTE | 2018-09-18 07:58 | MORECARE ---
CASE MANAGEMENT DISCHARGE SUMMARY PATIENT: JAMESON DEE UNIT: [id number] ADM DATE: 09/12/18 AGE: 52 : 61 SEX: M ROOM/BED: D.0555 AUTHOR: YONYDOC PHYSICIAN: REFERRING PHYSICIAN: EDMUND SARAVIA MD DATE OF SERVICE: 09/18/18 Discharge Plan Patient Name: JAMESON DEE [facility] [facility] 1965 Planned Disposition: Assisted Living Anticipated Discharge Date: 09/17/18 Discharge Date: Expected LOS: 5 Initial Reviewer: [id number] Initial Review Date: 09/12/2018 Generated: 09/18/18 8:57 am Comments DCP- Discharge Planning Updated by [id number]: Eunice Palmer on 09/18/18 6:[address] ARRIVED THIS AM AND TRIED TO MAKE SURE THE PATIENT WAS READY TO [employer] WORK[facility] AT 0800. THE DISCHARGE INSTRUCTIONS WERE NOT COMPLETED LAST NIGHT AND FAXED I HAD REQUESTED OF THE BEDSIDE NURSE DYLAN SEGURA AND DYLAN OLIVO CM. THE PATIENT HAS NOT HARD SCRIPTS I EXPRESSED WERE IMPORTANT TO THE [facility] TAKING THIS PATIENT BACK. I DISCUSSED THIS WITH CARRIE ARAGON, DYLAN SEGURA BEDSIDE NURSE, AND DYLAN OLIVO CM. I HAVE CALLED ALL THE UNITS LOOKING FOR DR SEYMOUR OR DR REYES AND NEITHER ARE HERE AT THIS TIME. I PAGED SUDHEER AMAYA APN FOR DR SEYMOUR AND EXPLAINED THE SITUTATION TO HIM AND HE SUGGESTED THAT I ASK DAVID FRANCISCO APN TO SEE IF SHE WAS HERE YET SHE MIGHT BE WILLING TO WRITE THE SCRIPTS THAT ARE NEEDED. I HAVE SENT HER A MESSAGE ASKING HER IF SHE WAS HERE AND IF SHE MIGHT BE ABLE TO HELP PER SUDHEER'S RECOMMENDATIONS. I AM WAITING FOR A RESPONSE. I HAVE SPOKE WITH THE BEDSIDE NURSE TODAY, CINTHIA PINA AND EXPLAINED WHAT I AM TRYING TO DO BEFORE THE FACILITY SHOWS UP. I AM NOT HOPEFUL THAT I CAN ACCOMPLISH WHAT THEY ARE REQUESTING. THIS MAY BE A REASON FOR THEM TO NOT PICK HIM UP TODAY. WE SHALL SEE. I WILL CONTINUE TO TRY TO MEET THEIR REQUEST. DCP- Discharge Planning Updated by [id number]: Eunice Palmer on 09/17/18 2:[address] @0707 I RECEIVED A STICKY NOTE THIS AM FROM THE BEDSIDE NURSE, IMELDA, THAT REQUESTED I CALL DARIA ACOSTA @ [phone] SOON I COULD IN REGARDS TO THIS PATIENT (I WAS TOLD LAST NIGHT THAT THIS INDIVIDUAL WOULD BE HERE THIS AM TO EVALUATE THIS PATIENT TO DETERMINE IF THE [facility] COULD TAKE HIM BACK). I PLACED A CALL AND LEFT A VOICE MAIL THAT I RECEIVED THE STICKY NOTE AND GAVE HIM MY RETURN NUMBER. I RECEIVED A RETURN CALL FROM HIM A SHORT TIME LATER AND WE DISCUSSED HIM COMING BACK. HE WANTED THE NUMBER TO AVANI SHRESTHA AT THE [facility]. I WAS UNABLE TO FIND THIS NUMBER, BUT @ 8256 LET DARIA KNOW THAT PER [facility]'S DOCUMENTATION THE NUMBER WAS GIVEN TO LIONEL YESTERDAY. I HEARD NOTHING BACK FROM HIM. @0928, I RECEIVED A CALL FROM LEILA AT THE [facility]. SHE STATED THAT SHE TALKED TO THE [facility] AND NOW THEY ARE TRYING TO REFER HIM TO [facility] FOR MEDICATION ADJUSTMENTS AND THEY WILL LET HER KNOW IN ABOUT AN HOUR IF THEY WILL ACCEPT HIM OR NOT AND SHE WILL LET ME KNOW, AND IF NOT THEY WOULD TAKE HIM BACK AND SHE WOULD CONTINUE TO WORK ON GETTING HIM INTO [facility]. SHE STATED THAT SHE HAS A FRIEND THAT WORKS THERE WHO SHE WOULD BE WORKING WITH. I REMINDED HER THAT 19 INPATIENT UNITS HAD REFUSED HIM AND THERE WERE ONLY 3 LEFT THAT WERE CONSIDERING HIM. SHE STATED SHE KNEW AND SHE WOULD LET ME KNOW SOON SHE KNEW. AFTER I HUNG UP THE PHONE WITH HER, THE [facility] NURSE IMELDA STATED THAT [facility] WOULD ACCEPT THE PATIENT, BUT HE WOULD HAVE TO BE SENT TO THEIR ER AND EVALUATED FIRST. THE PATIENT DOES NOT HAVE A PLACE TO GO AT DISCHARGE CURRENTLY AND IF WE SENT HIM ALL THE WAY THERE AND THEY DECIDED THAT HE DID NOT HAVE AN INPATIENT NEED, WHERE WOULD HE GO? NEAR 1300, I HAD NOT HAD ANY RETURN CALL, SO I CALLED AND LEFT A MESSAGE FOR THEM TO PLEASE CALL ME BACK. SHORTLY AFTER 1400 ANOTHER MESSAGE WAS LEFT. @9199 RECEIVED A RETURN CALL FROM DARIA ACOSTA, AND REVIEWED THE AM CONVERSATON WITH LEILA. HE STATED THAT THEY HAVE NOT HEARD BACK FROM THE [facility] AND THEY WERE WAITING. HE ALSO STATED THAT THEY NEEDED SCRIPTS, NOT FROM DR SARAVIA BUT FROM DR KHAN FOR ALL NEW MEDICATOINS THE PATIENT WAS PUT ON. I CLARIFIED IF THEY WOULD TAKE THIS PATIENT BACK TODAY OR IF THEY WERE PLANNING TO LEAVE HIM HERE UNTIL PLACEMENT WAS FOUND. WITHOUT DIRECTLY STATING IT, HE EMPLYED THAT THEY WERE NOT TAKING THE PATIENT BACK. SOON I HUNG UP WITH DARIA, THERE WAS A CALL WAITING FOR ME. IT WAS HEYDI MAHARAJ WITH THE [facility]. I GAVE HER AN UPDATE ON THE EVENTS OF THE DAY WITH LEILA AND DARIA. EXPLAINED THAT THE DOCTOR IS WANTING TO KNOW WHAT IS GOING ON WITH THIS PATIENT AND THEY WERE WANTING HIM OUT OF HERE TODAY. SHE STATED THAT THEY WOULD BE ABLE TO TAKE HIM BACK BUT THEY WOULD HAVE TO HAVE AN [facility]PAT[facility] FOLLOW [facility] WITH [facility] (WHICH I EXPLAINED WE MAY BE ABLE TO DO, BUT SOMETIMES THEY WILL). SHE ALSO STATED THAT THEY WOULD HAVE TO HAVE A SCRIPT FOR ALL HIS NEW MEDICATIONS TO LAST UNTIL THE APPOINTMENT. I EXPLAINED THAT DR SEYMOUR WOULD BE ABLE TO DO THAT. SHE SAID THAT IS WHAT THEY WOULD NEED IN ORDER TO TAKE HIM BACK. I REQUESTED A DIRECT NUMBER TO GET WITH HER AND SHE GAVE ME HER CALL NUMBER OF [phone]. UPON CALLING THE [facility], THE PATIENT ALREADY HAD AN APPOINTMENT SCHEDULED FOR September @ 0930. I CALLED CAROL ANN AND LET HER KNOW THIS. SHE STATED SHE WOULD HAVE TO CALL ME RIGHT BACK. UPON HER RETURN CALL, SHE STATED THAT THIS APPOINTMENT WOULD BE FINE. SHE STATED THAT THEY DID NOT HAVE TRANSPORT FOR TODAY, AND COULD ARRANGE TRANSPORT FOR IN THE AM. TRANSPORT IS SET UP FOR AT 0800 TOMORROW 09/18. SHE HAS REQUESTED THAT WE HAVE THE SCRIPTS FOR ALL MEDICATOINS AND FAX HER THE DISCHARGE STUFF TONIGHT TO [phone] SO THAT THEY CAN BE WORKING ON GETTING THINGS READY. I HAVE RELAYED THIS INFORMATION TO DYLAN OLIVO CM SECONDARY TO IT IS ALMOST THE END OF MY DAY, AND SHE WILL FOLLOW THROUGH WITH THIS. I SENT MARGO SNIDER APN A MESSAGE AND RECIEVED AN ALMOST INSTANT RETURN CALL. ALL THE ABOVE HAS BEEN EXPLAINED IN SHORTER FORMAT. SHE WILL PUT THE DISCHARGE IN AND IS TRYING TO SEE IF DR SEYMOUR IS HERE TO WHERE HE COULD SIGN SCRIPTS SO THAT EVERYTING WILL BE READY TO GO IN THE AM. I AM WAITING FOR A RETURN CALL FROM HER AND WILL RELAY ANY LOOSE STRINGS TO [place]. DCP- Discharge Planning Updated by [id number]: Bret Boswell on 09/16/18 4:[address] Patient Name: JAMESON DEE Encounter No: [id number] : 1965 Primary Insurance: [employer] Anticipated DC Date: 09-16-2018 Planned Disposition: Assisted Living External Planned Provider: [facility] DCP follow-up note: CM RECEIVED CALL FROM AVANI SHRESTHA OF [facility] WHO INFORMED CM THAT PT IS NOT IN NEED OF ACUTE PSYCHIATRIC TREATMENT HIS PRIMARY DIAGNOSIS IS DEMENTIA. AVANI INFORMED CM THAT PT NEEDS CALL WORKER PERSON FACILITY CARE THAT CAN DEAL WITH PT'S BEHAVIORS. ENRIQUE INFORMED CM THAT PT LIVES AT THE [facility] AND SHE BELIEVES HE IS IN [facility]ARE UNIT. CM CALLED THE [facility], [phone], SPOKE TO LIONEL WHO INFORMED CM THAT [facility] CALL[facility] SAT[facility] AND THEY SAID THEY WERE GOING TO TAKE PT INTO THE PSYCHIATRIC UNIT AND TO SEND PT TO THE EMERGENCY ROOM FOR TRANSFER. CM EXPLAINED WHAT AVANI SHRESTHA HAD INDICATED FROM [facility]. CM ASKED IF THE [facility] WILL SEND SOMEONE TO EVALUATE FOR RETURN. LIONEL WILL SPEAK TO [facility] AND IF PT DOES NOT TRANSFER, THEY WILL PROBABLY TAKE PT BACK INTO MEMORY CARE AT [facility]. CM WAITING DETERMINATION FOR READMIT TO THE [facility]. Bret Boswell, CASE MANAGEMENT Appended by Bret Boswell on 09/16/2018 15:01 CDT: DISCHARGE PLANNING NOTES: CM RECEIVED CALL FROM THE [facility], [phone], SPOKE TO LIONEL WHO INFORMED CM THAT SHE HAS NOT YET TALKED TO AVANI SHRESTHA AT [facility] YET. LIONEL WILL SPEAK TO [facility]. AVANI STATED THAT HER NURSE PRACTITIONER WANTS CM TO ATTEMPT TO SECURE INPATIENT PSYCHIATRIC CARE IN OTHER FACILITY. ALISSA EXPLAINED THAT THE [facility] IS PT'S PAYOR SOURCE AND THE [facility] HAS INFORMED CM THAT THEY DO NOT FEEL PT NEEDS ACUTE INPATIENT PSYCHIATRIC CARE AND IF THE [facility] WILL NOT PAY FOR THE STAY IN INPATIENT PSYCHIATRIC UNIT, PT WOULD HAVE TO BE ACCEPTED SELF PAY. [facility] REPORTS PT ALSO HAS QUAL CHOICE INSURANCE. ALISSA EXPLAINED THAT PT'S PAYOR SOURCE FOR HOSPTIAL STAY IS [facility] AND CM DID NOT THINK THAT OTHER INSURANCE WOULD PAY FOR INPATIENT PSYCHIATRIC CARE FROM THIS HOSPITAL STAY WITH ANOTHER PAYOR PRIMARY. CM CALLED [facility] ONE CALL TRANSFER CENTER, , SPOKE TO NEELAM WHO INFORMED CM THAT THE TRANSFER CENTER HAS CONTINUED TO SEEK INPATIENT PSYCHIATRIC PLACEMENT AND PT HAS BEEN DENIED BY 19 FACILITIES. THE ONLY THREE THAT HAVE NOT DECLINED PT ARE [facility] (HAS NO BEDS AVAILABLE), [facility] (HAS NO BEDS AVAILABLE) AND [facility] (PACKET FAXED TO THE FACILITY WITH NO DETERMINATION OF YET). CM CALLED ALLEN AT THE [facility], NOTIFIED OF DENIALS AND ONE OUTSTANDING REFERRAL TO INPATIENT PSYCHIATRIC FACILITY IN [place]. CM WAITING DETERMINATION FOR READMIT TO THE [facility]. PT HAS BEEN DECLINED AT 19 INPATIENT PSYCHIATRIC CARE FACLITIES WELL THE [facility] INPATIENT [facility]IC FACILITY. THERE IS ONLY ONE PENDING REFERRAL AT [facility] IN [place] FOR INPATIENT PSYCHIATRIC CARE. Bret Boswell, CASE MANAGEMENT Appended by Bret Boswell on 09/16/2018 17:18 CDT: CM RECEIVED CALL FROM LIONEL AND SITA ACOSTA OF THE [facility]. SITA IS LEDGER POSTER FOR THE FACILITY AND WILL COME TO EVALUATE PT FOR RETURN TO THE [facility] IN THE MORNING. LIONEL REPORTS SHE DID NOT RECEIVE ANY RETURN CALL FROM AVANI SHRESTHA AT THE [facility]. CM RECEIVED CALL FROM CAROL ANN MARY, PT'S DAUGHTER, , WHO REPORTS TO BE PT'S POWER OF PRICING SUPERVISOR. SHE IS IN AGREEMENT WITH PT'S RETURN TO THE [facility]. CAROL ANN REPORTS THAT BEFORE PT IS PRESCRIBED ANY MEDICATION, CAROL ANN SHOULD BE NOTIFIED AT [phone]. CAROL ANN REPORTS PT IS A DNR/DNI. CM WAITING DETERMINATION FOR READMIT TO THE [facility]. PT HAS BEEN DECLINED AT 19 INPATIENT PSYCHIATRIC CARE FACLITIES [facility]LL THE [facility] INPATIENT [facility]RIC FACILITY. THERE IS ONLY ONE PENDING REFERRAL AT [facility] IN [place] FOR INPATIENT PSYCHIATRIC CARE. Bret Boswell, CASE MANAGEMENT DCP- Discharge Planning Updated by [id number]: Bret Boswell on 09/15/18 3:[address] Patient Name: JAMESON DEE Encounter No: [id number] : 1965 Primary Insurance: [employer] Anticipated DC Date: 09-15-2018 Planned Disposition: Psych facility External Planned Provider: [facility] DCP follow-up note: CM CALLED [facility] EXPEDITOR, , SPOKE TO DAVID; INFORMED EXPEDITOR THAT PT IS MEDICALLY STABLE AND IN NEED OF INPATIENT PSYCHIATRIC PLACEMENT. DAVID REVIEWED RECORD AND OBSERVED THAT PT WAS ORIGINALLY REQUESTED FOR PSYCHIATRIC TRANSFER DUR TO [facility]. CM INFORMED EXPEDITOR THAT PT HAS BEEN DIAGNOSED WITH PSYCHOSIS. CM PROVIDED MED 2 CONTACT INFORMATION WELL CM CONTACT INFORMATION AND CONTACT PHONE [facility] FOR DR. SEYMOUR. CM WAITING [facility] TO CONTACT DOCTOR OR CM TO CONTINUE TRANSFER PROCESS. Bret Boswell, CASE MANAGEMENT Appended by Bret Boswell on 09/15/2018 16:41 CDT: CM CALLED [facility], , SPOKE TO DAVID AT 1515 HOURS, REQUESTED UPDATE ON PLACEMENT REQUEST FOR INPATIENT PHYCHIATRIC CARE. PATIENT EXPEDITOR DAVID INFORMED CM THAT SCREENING NURSE, AVANI SHRESTHA, HAD GONE HOME FOR THE DAY AND SHOULD CONTACT CM IN THE MORNING. CM NOTIFIED CARRIE SNIDER. CM WAITING ON SCREENING AND ADMISSION DETERMINATION FROM [facility] IN [place]. BRET BOSWELL, CASE MANAGEMENT DCP- Discharge Planning Updated by [id number]: Gisela Zayas on 09/13/18 5:[address] Patient Name: JAMESON DEE Encounter No: [id number] : 1965 Primary Insurance: [facility] ADMINISTRATION Anticipated DC Date: Planned Disposition: External Planned Provider: :[Ext Provider Name] DCP follow-up note: CM called the transfer center to follow on psych placement efforts and status. Thad with the transfer center stated they have faxed [facility] no return call at this time, [facility] full for the evening, [facility] no reply at this time, [facility] - no return call, [place] no bed tonight, [facility] - no bed for tonight, [facility] no return call, [facility] no return call, [facility] no return call, [facility] no return call, [facility] no no return call, [facility] no return call. Thad stated as soon as they have a moment they will call back to the facilities that have not called her back. She stated she is currently working on a head bleed and once she completes that she will begin calling the other facilities back. Gisela Zayas RN, [facility] [place] DCP- Discharge Planning Updated by [id number]: Gisela Zayas on 09/13/18 4:[address] Patient Name: JAMESON DEE Encounter No: [id number] : 1965 Primary Insurance: [facility] Anticipated DC Date: Planned Disposition: External Planned Provider: : DCP follow-up note: [facility] told [facility] to [facility] the patient here as they did not have geripsych. Gisela Zayas DCP- Discharge Planning Updated by [id number]: Giseladebora Zayas on 09/13/18 4:[address] Patient Name: JAMESON DEE Admission Status: ER Accout number: [id number] Admission Date: 09-12-2018 : 1965 Admission Diagnosis: Attending: EDMUND SARAVIA Current LOS: 1 Anticipated DC Date: Planned Disposition: Primary Insurance: [employer] Discharge Planning Comments: CM CONSULT FOR [facility] TRANSFER [facility] NOTIFIED AND PACKET SENT. Financial Aids Officer: Berna John DP export: 09/17/18 2:38 p Patient Name: JAMESON DEE Page [phone] at 0758 All edits/amendments must be made on the electronic document DICTATION DATE: 09/18/18756 SUPERVISOR SECURITIES VAULT: ANA MARIA 09/18/18 0757 RPT#: [id number] DC DATE: STATUS: ADM IN [facility] [address] [place] [address] END OF REPORT
[2018-09-18 08:13] VITALS: BP 124/70
--- NOTE | 2018-09-18 10:37 | NUR ---
DC AND RX GIVE TO VBA DEVELOPER, DC TO THE [facility] PER VAN
--- NOTE | 2018-09-19 17:40 | MORECARE ---
CASE MANAGEMENT DISCHARGE SUMMARY PATIENT: JAMESON DEE UNIT: [id number] ADM DATE: 09/12/18 AGE: 52 : 61 SEX: M ROOM/BED: D.0295 AUTHOR: YONY,DOC PHYSICIAN: REFERRING PHYSICIAN: EDMUND SARAVIA MD DATE OF SERVICE: 09/19/18 Discharge Plan Patient Name: JAMESON DEE Facility: [facility]:[place] : 1965 Planned Disposition: Assisted Living Anticipated Discharge Date: 09/17/18 Discharge Date: 09/18/2018 Expected LOS: 5 Initial Reviewer: [id number] Initial Review Date: 09/12/2018 Generated: 09/19/18 6:40 pm Comments DCP- Discharge Planning Updated by [id number]: Kenzie Oliveira on 09/19/18 4:[address] LATE ENTRY 09/18/18 0835 CM DID FAX THE DISCHARGE SUMMARY 09/17/18 WHICH WAS THE ONLY INFORMATION AVAILABLE OF THE REQUESTED INFORMATION TO BE FAXED. NO HARD COPY PRESCRIPTION HAD BEEN WRITTEN NO DISCHARGE INSTRUCTIONS HAD BEEN ENTERED BY 2200 WHEN CM LEFT FOR THE DAY. DISCUSSED W/ LUDIVINA, POLISHER SAND 09/18/18 AM. PROVIDED FAX CONFIRMATION RECORD. I SPOKE WITH CAROL ANN AT THE [facility] AND EXPLAINED AND APOLOGIZED BUT COULD ONLY FORWARD WHAT WAS AVAILABLE. DCP- Discharge Planning Updated by [id number]: Eunice Palmer on 09/18/18 6:[address] ARRIVED THIS AM AND TRIED TO MAKE SURE THE PATIENT WAS READY TO POWDER COMPOUNDER AT 0800. THE DISCHARGE INSTRUCTIONS WERE NOT COMPLETED LAST NIGHT AND FAXED I HAD REQUESTED OF THE BEDSIDE NURSE DYLAN SEGURA AND DYLAN OLIVO CM. THE PATIENT HAS NOT HARD SCRIPTS I EXPRESSED WERE IMPORTANT TO THE [facility] TAKING THIS PATIENT BACK. I DISCUSSED THIS WITH CARRIE ARAGON, DYLAN SEGURA BEDSIDE NURSE, AND DYLAN OLIVO CM. I HAVE CALLED ALL THE UNITS LOOKING FOR DR SEYMOUR OR DR REYES AND NEITHER ARE HERE AT THIS TIME. I PAGED SUDHEER AMAYA APN FOR DR SEYMOUR AND EXPLAINED THE SITUTATION TO HIM AND HE SUGGESTED THAT I ASK DAVID FRANCISCO APN TO SEE IF SHE WAS HERE YET SHE MIGHT BE WILLING TO WRITE THE SCRIPTS THAT ARE NEEDED. I HAVE SENT HER A MESSAGE ASKING HER IF SHE WAS HERE AND IF SHE MIGHT BE ABLE TO HELP PER SUDHEER'S RECOMMENDATIONS. I AM WAITING FOR A RESPONSE. I HAVE SPOKE WITH THE BEDSIDE NURSE TODAY, CINTHIA PINA AND EXPLAINED WHAT I AM TRYING TO DO BEFORE THE FACILITY SHOWS UP. I AM NOT HOPEFUL THAT I CAN ACCOMPLISH WHAT THEY ARE REQUESTING. THIS MAY BE A REASON FOR THEM TO NOT PICK HIM UP TODAY. WE SHALL SEE. I WILL CONTINUE TO TRY TO MEET THEIR REQUEST. DCP- Discharge Planning Updated by [id number]: Eunice Palmer on 09/17/18 2:[address] @0707 I RECEIVED A STICKY NOTE THIS AM FROM THE BEDSIDE NURSE, IMELDA, THAT REQUESTED I CALL DARIA ACOSTA @ [phone] SOON I COULD IN REGARDS TO THIS PATIENT (I WAS TOLD LAST NIGHT THAT THIS INDIVIDUAL WOULD BE HERE THIS AM TO EVALUATE THIS PATIENT TO DETERMINE IF THE [facility] COULD TAKE HIM BACK). I PLACED A CALL AND LEFT A VOICE MAIL THAT I RECEIVED THE STICKY NOTE AND GAVE HIM MY RETURN NUMBER. I RECEIVED A RETURN CALL FROM HIM A SHORT TIME LATER AND WE DISCUSSED HIM COMING BACK. HE WANTED THE NUMBER TO AVANI SHRESTHA AT THE [facility]. I WAS UNABLE TO FIND THIS NUMBER, BUT @ 0956 LET DARIA KNOW THAT PER [facility]'S DOCUMENTATION THE NUMBER WAS GIVEN TO LIONEL YESTERDAY. I HEARD NOTHING BACK FROM HIM. @0961, I RECEIVED A CALL FROM LEILA AT THE [facility]. SHE STATED THAT SHE TALKED TO THE [place] AND NOW THEY ARE TRYING TO REFER HIM TO [facility] FOR MEDICATION ADJUSTMENTS AND THEY WILL LET HER KNOW IN ABOUT AN HOUR IF THEY WILL ACCEPT HIM OR NOT AND SHE WILL LET ME KNOW, AND IF NOT THEY WOULD TAKE HIM BACK AND SHE WOULD CONTINUE TO WORK ON GETTING HIM INTO [facility]. SHE STATED THAT SHE HAS A FRIEND THAT WORKS THERE WHO SHE WOULD BE WORKING WITH. I REMINDED HER THAT 19 INPATIENT UNITS HAD REFUSED HIM AND THERE WERE ONLY 3 LEFT THAT WERE CONSIDERING HIM. SHE STATED SHE KNEW AND SHE WOULD LET ME KNOW SOON SHE KNEW. AFTER I HUNG UP THE PHONE WITH HER, THE [facility] NURSE IMELDA STATED THAT [facility] WOULD ACCEPT THE PATIENT, BUT HE WOULD HAVE TO BE SENT TO THEIR ER AND EVALUATED FIRST. THE PATIENT DOES NOT HAVE A PLACE TO GO AT DISCHARGE CURRENTLY AND IF WE SENT HIM ALL THE WAY THERE AND THEY DECIDED THAT HE DID NOT HAVE AN INPATIENT NEED, WHERE WOULD HE GO? NEAR 1300, I HAD NOT HAD ANY RETURN CALL, SO I CALLED AND LEFT A MESSAGE FOR THEM TO PLEASE CALL ME BACK. SHORTLY AFTER 1400 ANOTHER MESSAGE WAS LEFT. @1443 RECEIVED A RETURN CALL FROM DARIA ACOSTA, AND REVIEWED THE AM CONVERSATON WITH LEILA. HE STATED THAT THEY HAVE NOT [facility] AND THEY WERE WAITING. HE ALSO STATED THAT THEY NEEDED SCRIPTS, NOT FROM DR SARAVIA BUT FROM DR KHAN FOR ALL NEW MEDICATOINS THE PATIENT WAS PUT ON. I CLARIFIED IF THEY WOULD TAKE THIS PATIENT BACK TODAY OR IF THEY WERE PLANNING TO LEAVE HIM HERE UNTIL PLACEMENT WAS FOUND. WITHOUT DIRECTLY STATING IT, HE EMPLYED THAT THEY WERE NOT TAKING THE PATIENT BACK. SOON I HUNG UP WITH DARIA, THERE WAS A CALL WAITING FOR ME. IT WAS CAROL ANN, DON WITH THE [facility]. I GAVE HER AN UPDATE ON THE EVENTS OF THE DAY WITH LEILA AND DARIA. EXPLAINED THAT THE DOCTOR IS WANTING TO KNOW WHAT IS GOING ON WITH THIS PATIENT AND THEY WERE WANTING HIM OUT OF HERE TODAY. SHE STATED THAT THEY WOULD BE ABLE TO TAKE HIM BACK BUT THEY WOULD HAVE TO HAVE AN OUTPATIENT FOLLOW UP APPOINTMENT WITH THE [facility] (WHICH I EXPLAINED WE MAY BE ABLE TO DO, BUT SOMETIMES THEY WILL). SHE ALSO STATED THAT THEY WOULD HAVE TO HAVE A SCRIPT FOR ALL HIS NEW MEDICATIONS TO LAST UNTIL THE APPOINTMENT. I EXPLAINED THAT DR SEYMOUR WOULD BE ABLE TO DO THAT. SHE SAID THAT IS WHAT THEY WOULD NEED IN ORDER TO TAKE HIM BACK. I REQUESTED A DIRECT NUMBER TO GET WITH HER AND SHE GAVE ME HER CALL NUMBER OF [phone]. UPON CALLING THE [facility], THE PATIENT ALREADY HAD AN APPOINTMENT SCHEDULED FOR September @ 0930. I CALLED CAROL ANN AND LET HER KNOW THIS. SHE STATED SHE WOULD HAVE TO CALL ME RIGHT BACK. UPON HER RETURN CALL, SHE STATED THAT THIS APPOINTMENT WOULD BE FINE. SHE STATED THAT THEY DID NOT HAVE TRANSPORT FOR TODAY, AND COULD ARRANGE TRANSPORT FOR IN THE AM. TRANSPORT IS SET UP FOR AT 0800 TOMORROW 09/18. SHE HAS REQUESTED THAT WE HAVE THE SCRIPTS FOR ALL MEDICATOINS AND FAX HER THE DISCHARGE STUFF TONIGHT TO [phone] SO THAT THEY CAN BE WORKING ON GETTING THINGS READY. I HAVE RELAYED THIS INFORMATION TO DYLAN OLIVO CM SECONDARY TO IT IS ALMOST THE END OF MY DAY, AND SHE WILL FOLLOW THROUGH WITH THIS. I SENT MARGO SNIDER APN A MESSAGE AND RECIEVED AN ALMOST INSTANT RETURN CALL. ALL THE ABOVE HAS BEEN EXPLAINED IN SHORTER FORMAT. SHE WILL PUT THE DISCHARGE IN AND IS TRYING TO SEE IF DR SEYMOUR IS HERE TO WHERE HE COULD SIGN SCRIPTS SO THAT EVERYTING WILL BE READY TO GO IN THE AM. I AM WAITING FOR A RETURN CALL FROM HER AND WILL RELAY ANY LOOSE STRINGS TO KENZIE. DCP- Discharge Planning Updated by [id number]: Bret Boswell on 09/16/18 4:[address] Patient Name: JAMESON DEE Encounter No: [id number] : 1965 Primary Insurance: [employer] Anticipated DC Date: 09-16-2018 Planned Disposition: Assisted Living External Planned Provider: THE [facility] DCP follow-up note: CM RECEIVED CALL FROM AVANI SHRESTHA OF [facility] WHO INFORMED CM THAT PT IS NOT IN NEED OF ACUTE PSYCHIATRIC TREATMENT HIS PRIMARY DIAGNOSIS IS DEMENTIA. AVANI INFORMED CM THAT PT NEEDS FIRE ENGINE OPERATOR FACILITY CARE THAT CAN DEAL WITH PT'S BEHAVIORS. ENRIQUE INFORMED CM THAT PT LIVES AT THE [facility] AND SHE BELIEVES HE IS IN MEMORY CARE UNIT. CM CALLED THE [facility], [phone], SPOKE TO LIONEL WHO INFORMED CM THAT SHE CALLED THE [place] ON SATURDAY AND THEY SAID THEY WERE GOING TO TAKE PT INTO THE PSYCHIATRIC UNIT AND TO SEND PT TO THE EMERGENCY ROOM FOR TRANSFER. CM EXPLAINED WHAT AVANI SHRESTHA HAD INDICATED FROM [place]. CM ASKED IF THE [facility] WILL SEND SOMEONE TO EVALUATE FOR RETURN. LIONEL WILL SPEAK TO [place] AND IF PT DOES NOT TRANSFER, THEY WILL PROBABLY TAKE PT BACK INTO MEMORY CARE AT [facility]. CM WAITING DETERMINATION FOR READMIT TO THE [facility]ORY CARE UNIT. Bret Boswell, CASE MANAGEMENT Appended by Bret Boswell on 09/16/2018 15:01 CDT: DISCHARGE PLANNING NOTES: CM RECEIVED CALL FROM THE [facility], [phone], SPOKE TO LIONEL WHO INFORMED CM THAT SHE HAS NOT YET TALKED TO AVANI SHRESTHA AT [facility] YET. LIONEL WILL SPEAK TO [place]. AVANI STATED THAT HER NURSE PRACTITIONER WANTS CM TO ATTEMPT TO SECURE INPATIENT PSYCHIATRIC CARE IN OTHER FACILITY. CM EXPLAINED THAT THE [place] IS PT'S PAYOR SOURCE AND THE [facility] HAS INFORMED CM THAT THEY DO NOT FEEL PT NEEDS ACUTE INPATIENT PSYCHIATRIC CARE AND IF THE [facility] WILL NOT [facility] THE [facility]AY IN INPATIENT PSYCHIATRIC UNIT, PT WOULD HAVE TO BE ACCEPTED SELF PAY. [facility] REPORTS PT ALSO HAS QUAL CHOICE INSURANCE. CM EXPLAINED THAT PT'S PAYOR SOURCE FOR HOSPTIAL STAY IS [facility] AND CM DID NOT THINK THAT OTHER INSURANCE WOULD PAY FOR INPATIENT PSYCHIATRIC CARE FROM THIS HOSPITAL STAY WITH ANOTHER PAYOR PRIMARY. CM CALLED [facility], , SPOKE TO NEELAM WHO INFORMED CM THAT THE TRANSFER CENTER HAS CONTINUED TO SEEK INPATIENT PSYCHIATRIC PLACEMENT AND PT HAS BEEN DENIED BY 19 FACILITIES. THE ONLY THREE THAT HAVE NOT DECLINED PT ARE [facility] (HAS NO BEDS AVAILABLE), [facility] (HAS NO BEDS AVAILABLE) AND [facility] (PACKET FAXED TO THE FACILITY WITH NO DETERMINATION OF YET). CM CALLED [facility] AT THE [facility], NOTIFIED OF DENIALS AND ONE OUTSTANDING REFERRAL TO INPATIENT PSYCHIATRIC FACILITY IN [place]. CM WAITING DETERMINATION FOR READMIT TO THE [facility] MEMORY CARE UNIT. PT HAS BEEN DECLINED AT 19 INPATIENT PSYCHIATRIC CARE FACLITIES WELL THE [place] [facility]. THERE IS ONLY ONE PENDING REFERRAL AT [facility] IN [place] FOR INPATIENT PSYCHIATRIC CARE. Bret Boswell, CASE MANAGEMENT Appended by Bret Boswell on 09/16/2018 17:18 CDT: CM RECEIVED CALL FROM LIONEL AND SITA ACOSTA OF THE [facility]. SITA IS OPTIMIZATION SPECIALIST FOR THE FACILITY AND WILL COME TO EVALUATE PT FOR RETURN TO THE [facility] IN THE MORNING. LIONEL REPORTS SHE DID NOT RECEIVE ANY RETURN CALL FROM AVANI SHRESTHA AT THE [place]. CM RECEIVED CALL FROM CAROL ANN CANOTON, PT'S DAUGHTER, , WHO REPORTS TO BE PT'S POWER OF NOODLE MAKER. SHE IS IN AGREEMENT WITH PT'S RETURN TO THE [facility]. CAROL ANN REPORTS THAT BEFORE PT IS PRESCRIBED ANY MEDICATION, CAROL ANN SHOULD BE NOTIFIED AT [phone]. CAROL ANN REPORTS PT IS A DNR/DNI. CM WAITING DETERMINATION FOR READMIT TO THE [facility]. PT HAS BEEN DECLINED AT 19 INPATIENT PSYCHIATRIC CARE FACLITIES WELL THE [place] [facility]ACILITY. THERE IS ONLY ONE PENDING REFERRAL AT [facility] IN [place] FOR INPATIENT PSYCHIATRIC CARE. Bret Elbert, CASE MANAGEMENT DCP- Discharge Planning Updated by [id number]: Bret Boswell on 09/15/18 3:[address] Patient Name: JAMESON DEE Encounter No: [id number] : 1965 Primary Insurance: [employer] Anticipated DC Date: 09-15-2018 Planned Disposition: Psych facility External Planned Provider: [facility]IATRIC FAC[facility] DCP follow-up note: CM CALLED [place] EXPEDITOR, , SPOKE TO DAVID; INFORMED EXPEDITOR THAT PT IS MEDICALLY STABLE AND IN NEED OF INPATIENT PSYCHIATRIC PLACEMENT. DAVID REVIEWED RECORD AND OBSERVED THAT PT WAS ORIGINALLY REQUESTED FOR PSYCHIATRIC TRANSFER DUR TO [facility]. CM INFORMED EXPEDITOR THAT PT HAS BEEN DIAGNOSED WITH PSYCHOSIS. CM PROVIDED [employer] CONTACT INFORMATION WELL CM CONTACT INFORMATION AND CONTACT PHONE [facility] FOR DR. SEYMOUR. CM WAITING [facility] TO CONTACT DOCTOR OR CM TO CONTINUE TRANSFER PROCESS. Bret Boswell, CASE MANAGEMENT Appended by Bret Boswell on 09/15/2018 16:41 CDT: [facility]ED [facility], , SPOKE TO DAVID AT 1515 HOURS, REQUESTED UPDATE ON PLACEMENT REQUEST FOR INPATIENT PHYCHIATRIC CARE. PATIENT EXPEDITOR DAVID INFORMED CM THAT SCREENING NURSE, AVANI SHRESTHA, HAD GONE HOME FOR THE DAY AND SHOULD CONTACT CM IN THE MORNING. CM NOTIFIED CARRIE SNIDER. CM WAITING ON SCREENING AND ADMISSION DETERMINATION FROM [facility] [place]. BRET BOSWELL CASE MANAGEMENT DCP- Discharge Planning Updated by [id number]: Gisela Zayas on 09/13/18 5:[address] Patient Name: JAMESON DEE Encounter No: [id number] : 1965 Primary Insurance: [employer] Anticipated DC Date: Planned Disposition: External Planned Provider: :[Ext Provider Name] DCP follow-up note: CM called the transfer center to follow on psych placement efforts and status. Thad with the transfer center stated they have faxed [facility] no return call at this time, [facility] full for the evening, [facility] no reply at this time, [facility] - no return call, [facility] no bed tonight, [facility] - no bed for tonight, [facility] return call, [facility] no return call, [facility] no return call, [facility] no return call, [facility] no no return call, [facility] no return call. Thad stated as soon as they have a moment they will call back to the facilities that have not called her back. She stated she is currently working on a head bleed and once she completes that she will begin calling the other facilities back. Gisela Zayas RN, [facility] DCP- Discharge Planning Updated by [id number]: Gisela Zayas on 09/13/18 4:[address] Patient Name: JAMESON DEE Encounter No: [id number] : 1965 Primary Insurance: [employer] Anticipated DC Date: Planned Disposition: External Planned Provider: : DCP follow-up note: [facility] told [facility] to [facility] the patient here as they did not have geripsych. Gisela Zayas DCP- Discharge Planning Updated by [id number]: Gisela Zayas on 09/13/18 4:[address] Patient Name: JAMESON DEE Admission Status: ER Accout number: [id number] Admission Date: 09-12-2018 : 1965 Admission Diagnosis: Attending: EDMUND SARAVIA Current LOS: 1 Anticipated DC Date: Planned Disposition: Primary Insurance: [employer] Discharge Planning Comments: CM CONSULT FOR PSYCH PLACEMENT TRANSFER CENTER NOTIFIED AND PACKET SENT. Nail Feeder: Berna John DP export: 09/18/18 6:57 a Patient Name: JAMESON DEE Page [phone] at 1740 All edits/amendments must be made on the electronic document DICTATION DATE: 09/19/181738 LATHE OPERATOR: ANA MARIA 09/19/181738 RPT#: [id number] DC DATE:09/18/18 STATUS: DIS IN [facility] [address] [place] [address] END OF REPORT
== END 2018-09-18 10:37 | disposition home or self-care (01) | DRG 885 ==
LOC: D.ER 15:19 → D.M2 21:40
PROVIDERS: Emergency Medicine; Family Medicine; ADMIT Internal Medicine Nephrology; ATTEND Internal Medicine Nephrology
DX: F23 Brief psychotic disorder (principal); F17.213 Nicotine dependence, cigarettes, with withdrawal; F03.91 Unspecified dementia, unspecified severity, with behavioral disturbance; K80.10 Calculus of gallbladder with chronic cholecystitis without obstruction; B19.20 Unspecified viral hepatitis C without hepatic coma; R74.8 Abnormal levels of other serum enzymes

== ENCOUNTER 2018-12-19 23:17 | Emergency (ER) | payer OTHER ==
[~2018-12-19] VITALS: Ht 182.9 cm; Wt 81.8 kg
[~2018-12-19 23:17] MED LIST: CLARITIN 10 MG10 MG PO; DEPAKOTE500 MG PO; KEPPRA500 MG PO; PHENERGAN12.5 MG RC; VITAMIN D2000 UNIT PO; ZYPREXA10 MG PO
[2018-12-19 23:18] VITALS: Ht 182.9 cm; Wt 81.8 kg
[2018-12-20 03:14] VITALS: BP 147/78
== END 2018-12-20 03:14 | disposition other institution (70) ==
LOC: D.ER 23:17
DX: R60.1 Generalized edema (principal); F03.91 Unspecified dementia, unspecified severity, with behavioral disturbance; Z91.83 Wandering in diseases classified elsewhere